=== PATIENT | female | born 1955 | race Caucasian/White ===

== ENCOUNTER 2020-02-07 08:34 | Outpatient (CLI) | payer BC, SELFPAY ==
--- NOTE | ~2020-02-07 | XR_ITS ---
EXAMINATION: XR abdomen/kub 1V INDICATION: Bilateral kidney stones TECHNIQUE: Supine views of the abdomen were obtained on 2 radiographs. COMPARISON: 01/02/2019 FINDINGS: No definite urinary tract calculi are identified. There are multiple phleboliths in the pel vis. Vascular calcifications are noted in association with the left kidney. Cholecystectomy clips are present. There is severe lumbar spondylosis. Multiple calcified granulomas are seen in the visualize d lung bases. There is mild bilateral hip osteoarthritis. The bowel gas pattern is normal. IMPRESSION: 1. No definite urinary tract calculi identified. Reviewed, dictated and finalized at location A.
== END 2020-02-07 08:35 | disposition home or self-care (01) ==
LOC: CHSLAB 08:36
PROVIDERS: PCP Internal Medicine; Visit Provider Urology
DX: N20.0 Calculus of kidney (principal)
CPT/HCPCS: 74018

== ENCOUNTER 2020-03-05 08:52 | Outpatient (CLI) | payer BC, SELFPAY ==
--- NOTE | ~2020-03-05 | MMUS_ITS ---
EXAMINATION: MM diagnostic josefina BI w jose, US breast BI limited HISTORY: Follow-up breast mass TECHNIQUE: Additional 3-D tomosynthesis images of the breasts were performed and synthetic 2-D images were generated. CAD analysis was submitted and interpreted. High resolution bilateral breast ultraso und was performed. COMPARISON: Comparison to multiple prior studies sequentially, with oldest reviewed study dated 11/06. BREAST PARENCHYMAL COMPOSITION: Breast composed of scattered areas of fibroglandular density. FINDINGS: MAMMOGRAPHIC FINDINGS: There are stable asymmetries in the right breast. No new masses, calcifications or architectural dist ortion to suggest malignancy. Masses in the upper outer quadrant of the left breast are unchanged. No suspicious calcifications. Right breast ultrasound: At 9:00, 4 cm from the nipple there is a 3 mm cyst. At 11:00, 2 cm from the nipple there are 2 hyperechoic masses with dense posterior shadowing measuring 8 and 7 mm respectivel y. No internal vascularity. These are unchanged from prior examination. Left breast ultrasound: At 1:00, 3 cm from the nipple, there is a 8 mm complicated cyst. At 1:00, 3 cm from the nipple, there is an oval circumscribed hypoechoic 5 mm mass without internal vascularity or posterior shadowing at 3:00, 3 cm from the nipple there is a 3 mm cyst. IMPRESSION: 1. Probable benign bilateral breast masses. 2. Recommend 6 month follow-up bilateral breast ultrasound BI-RADS category 3, probably benign findings. Reviewed, dictated and finalized at location A. IMPRESSION: 1. Probable benign bilateral breast masses. 2. Recommend 6 month follow-up bilateral breast ultrasound BI-RADS category 3, probably benign findings.
== END 2020-03-05 08:53 | disposition home or self-care (01) ==
PROVIDERS: PCP Internal Medicine; Visit Provider Internal Medicine
DX: R92.8 Other abnormal and inconclusive findings on diagnostic imaging of breast (principal)
CPT/HCPCS: 76642; 77062; 77066; G0279

== ENCOUNTER 2020-03-12 10:09 | Emergency (ER) | payer BC, SELFPAY ==
[2020-03-12] VITALS (7 sets, daily range): BP systolic 105–145; BP diastolic 57–100; PULSE 111–155; RESP 18–20; TEMP 36.7–36.8; O2SAT 95–98
--- NOTE | ~2020-03-12 | XR_ITS ---
EXAMINATION: XR chest 2V DATE: 03/12/2020 10:42 INDICATION: Tachycardia and cough TECHNIQUE: Frontal and lateral views of the chest are obtained COMPARISON: 06/18/2019 FINDINGS: The lungs are free of acute opacities. There is no pleural effusion or pneumothorax. The ca rdiomediastinal silhouette is normal. There is moderate thoracic spondylosis. There are innumerable c alcified pulmonary nodules scattered throughout the lungs, consistent with old granulomatous disease. IMPRESSION: 1. No acute cardiopulmonary abnormality. Reviewed, dictated and finalized at location B.
--- NOTE | 2020-03-12 10:15 | ECG_ITS ---
Measurements Intervals [place] Rate: 128 P: NM: 0 QRS: 0 QRSD: 83 T: 42 QT: 279 QTc: 407 Interpretive Statements ATRIAL FIBRILLATION WITH RAPID VENTRICULAR RESPONSE BASELINE ARTIFACT- II, III, AVR, AVL, AVF ABNORMAL ECG Electronically Signed On 03-12-2020 11:01:34 CDT by Hi Mao D.O.
[2020-03-12 10:34] LABS: Basophils Absolute Auto 0.07 K/mm3 (0.00-0.10); Basophils Percent Auto 0.8 % (0.0-1.0); Eosinophils Absolute Auto 0.12 K/mm3 (0.02-0.50); Eosinophils Percent Auto 1.3 % (1.0-6.0); Hemoglobin 15.7 g/dL (12.0-15.0); Immature Granulocyte Absolute 0.03 K/mm3 (0.00-0.00); Immature Granulocyte Percent A 0.3 % (0.0-0.0); Lymphocytes Absolute Auto 2.16 K/mm3 (1.10-4.50); Lymphocytes Percent Auto 23.8 % (18.0-42.0); Mean Corpuscular HGB Conc 32.7 g/dL (32.0-36.0); Mean Corpuscular Hemoglobin 28.4 pg (27.0-31.0); Mean Corpuscular Volume 86.8 fL (78.0-102.0); Mean Platelet Volume 10.7 fl (9.2-11.8); Monocytes Absolute Auto 0.61 K/mm3 (0.10-0.90); Monocytes Percent Auto 6.7 % (2.0-11.0); Neutrophils Absolute Auto 6.1 K/mm3 (1.7-7.2); Neutrophils Percent Auto 67.1 % (50.0-70.0); Platelet Count Result 282 K/mm3 (150-420); Red Blood Count 5.53 M/mm3 (4.20-5.40); Red Cell Distribution Width 14.2 % (11.6-14.4); White Blood Count 9.1 K/mm3 (4.8-10.8)
[2020-03-12 10:49] LABS: INR 1.1; Partial Thromboplastin Time 27.8 SEC (22.3-31.6); Prothrombin Time 10.9 Seconds (9.64-11.0)
[2020-03-12 10:53] LABS: Alanine Aminotransferase 32 U/L (14-59); Albumin Level 3.4 g/dL (3.4-5.0); Alkaline Phosphatase 76 U/L (46-116); Anion Gap 13.8 mmol/L (7-16); Aspartate Amino Transferase 19 U/L (15-37); BNP 70.6 pg/mL (0-100); Bilirubin,Total 0.4 mg/dL (0.00-1.00); Blood Urea Nitrogen 11 mg/dL (7-18); Calcium 9.8 mg/dL (8.5-10.1); Carbon Dioxide 26 mmol/L (21-32); Chloride 104 mmol/L (98-108); Estimated CRCL calculation 63 ml/min; Estimated Glomerular Filt Rate > 60; Glucose 123 mg/dL (70-99); Osmolality Calculated 290 mOsm/kg (285-295); Potassium 3.8 mmol/L (3.5-5.1); Sodium 140 mmol/L (136-145); Total Protein 7.2 g/dL (6.4-8.2)
[2020-03-12 10:54] LABS: Troponin I < 0.02 ng/mL (0.00-0.056)
--- NOTE | 2020-03-12 10:57 | PC.NURSE ---
Report given to QUIN Novak
--- NOTE | 2020-03-12 11:10 | PC.NURSE ---
[facility] [place] [facility] for consult.
--- NOTE | 2020-03-12 11:51 | PC.NURSE ---
Dr. Carter speaking with Dr. Butt with [facility]. Awaiting hospitalist to call, Dr. Butt would like pt transfered to see pt at [place].
--- NOTE | 2020-03-12 11:54 | ED.ARRPALP ---
HPI - Arrhythmia/Palpitations General Chief Complaint: Arrhythmia/Palpitations Stated Complaint: increased HR Time Seen by Provider: 03/12/20 11:54 Source: patient Mode of arrival: ambulatory Limitations: no limitations History of Present Illness HPI narrative: 64-year-old woman sent to the emergency department by her primary care doctor for a rapid heart rate found during a routine office visit. she denies having shortness of breath, chest pain, lightheadedness, sweating, nausea and she has no history of coronary artery disease. Her doctor also notes that she is hyperthyroid at present as Demonstrated by a very low TSH and an elevated T3 and T4 on labs drawn on 02/22/2020. She had ablation of AV node reentry SVT in 1999. complaint: heart racing Onset (ago): unknown Duration: constant Severity: mild Arrhythmia history: SVT Related Data Home Medications Medication Instructions Recorded Confirmed omega 6-hzr-wlp-fish oil [Fish Oil] 1 cap PO DAILY 06/18/19 03/12/20 budesonide-formoterol [Symbicort] 1 inh INHALATION DAILY 03/12/20 03/12/20 montelukast 10 mg PO DAILY 03/12/20 03/12/20 Allergies Allergy/AdvReac Type Severity Reaction Status Date / Time No Known Allergies Allergy Verified 06/18/19 09:39 Review of Systems Constitutional: Constitutional: Denies chills, Denies fatigue, Denies fever(s) and Denies weakness Eyes: Eyes: Denies change in vision and Denies photophobia ENT: Denies dysphagia, Denies nasal congestion and Denies sore throat Cardiovascular: Cardiovascular: Denies radiating jaw, neck or arm pain Respiratory: Respiratory: Denies cough, Denies dyspnea and Denies wheezing Gastrointestinal: Gastrointestinal: Denies abdominal pain, Denies nausea and Denies vomiting Genitourinary: Genitourinary: Denies nocturia and Denies dysuria Musculoskeletal: Musculoskeletal: Denies back pain, Denies arthralgias and Denies joint swelling Integumentary/Breasts: Skin/Breast: Denies pruritus, Denies erythema and Denies rash Neurologic: Denies vertigo, Denies dizziness and Denies syncope Endocrine: Endocrine: Denies polydipsia and Denies polyuria Hematologic/Lymphatic: Hematologic/Lymphatic: Denies easy bleeding and Denies easy bruising Allergic/Immunologic: Allergic/Immunologic: Denies lip swelling and Denies wheezing PMFSH Past Medical History Medical History Arthritis SVT (supraventricular tachycardia) Surgical History Surgical History H/O prior ablation treatment History of section x 2 History of tubal ligation Social History Social History Smoking status: Current every day smoker Tobacco type: cigarettes Second hand tobacco smoke exposure: Yes Smoking end date: 08/16/09 Alcohol intake: former Substance use: never Gender identity (if verbalized by the patient): Female Exam Const: General: healthy appearing and no acute distress Limitations: no limitations HENMT: Mouth: Yes moist mucous membranes Throat: posterior oropharynx normal Eyes: Conjunctivae: conjunctivae normal Pupils: Equal, round and reactive pupils present EOM: EOMs intact bilaterally Resp: Effort & Inspection: normal respiratory effort and not labored Auscultation: clear to auscultation bilaterally, no rales, no rhonchi and no wheezes Cardio: Rate: regular rate Rhythm: regular rhythm Heart sounds: no murmurs GI: Inspection: non-distended Auscultation: normal bowel sounds Other: nontender. Skin: General skin exam: normal color, no jaundice and no pallor Rashes: no rashes Neuro: General: patient oriented x3, moves all extremities, no focal motor deficits and CN's II-XI intact bilaterally Speech: normal speech Gait exam (Neuro): Normal gait present Extrem: General: normal to inspection and no clubbing, cyanosis
[2020-03-12] MEDS: METOPROLOL SUCCINATE EXT REL 50 MG TABCR PO (12:02)
[2020-03-12 12:09] LABS: Appearance Urine Clear (Clear); Bilirubin Urine Negative (Negative); Color Urine Yellow (Yellow); Glucose Urine UA Negative (Negative); Ketones Urine Negative (Negative); Leukocyte Esterase Ur Negative LEU/UL (Negative); Nitrate Urine Negative (Negative); Protein Urine Negative (Negative); Urobilinogen Urine 0.2 mg/dL (0.2-1.0); pH Urine 7.5 (5.0-8.0)
[2020-03-12 12:12] LABS: Add Urine Microscopic? YES; Blood Urine Trace-Intact (Negative)
[2020-03-12 12:13] LABS: RBC Urine 0-2 /hpf (0-2)
[2020-03-12 12:14] LABS: Bacteria Urine Trace /hpf; Squamous Epithelial Cell Urine Rare /hpf (Few); WBC Urine 0-3 /hpf (0-3)
[2020-03-12 12:16] LABS: Amphetamine Screen Urine Negative (Negative); Barbiturate Screen Urine Negative (Negative); Benzodiazepines Screen Urine Negative (Negative); Cannabinoid Screen Urine Negative (Negative); Cocaine Screen Urine Negative (Negative); Methadone Screen Urine Negative (Negative); Opiate Screen Urine Negative (Negative); Phencyclidine Screen Urine Negative (Negative)
--- NOTE | 2020-03-12 12:28 | PC.NURSE ---
Dr. Carter speaking with hospitalist at [facility]
[2020-03-12] MEDS: APIXABAN 2.5 MG TABLET 5 MG PO (12:40)
--- NOTE | 2020-03-12 13:27 | PC.NURSE ---
Report to [facility] and ARIANNA caldwell for transfer.
--- NOTE | 2020-03-12 13:39 | PC.NURSE ---
[facility] unavailable for transfer, [facility] contacted.
[2020-03-12 14:06] LABS: Troponin I < 0.02 ng/mL (0.00-0.056)
== END 2020-03-12 13:55 | disposition short-term general hospital (02) ==
PROVIDERS: Emergency Provider Emergency Medicine; PCP Internal Medicine
DX: I48.20 Chronic atrial fibrillation, unspecified (principal); F17.200 Nicotine dependence, unspecified, uncomplicated
CPT/HCPCS: 36415; 71046; 80053; 80307; 81001; 83519; 83880; 84484; 85025; 85610; 85730; 93005; 99285; A9270

== ENCOUNTER 2020-09-17 09:23 | Outpatient (CLI) | payer MEDICARE, BC, SELFPAY ==
--- NOTE | ~2020-09-17 | US_ITS ---
EXAMINATION: US breast BI complete HISTORY: Probably benign bilateral breast masses TECHNIQUE: Complete bilateral breast ultrasound is performed including all four quadrants and the sub areolar aspects of both breasts. COMPARISON: 03/05/2020, 07/04/2019, 12/29/2018 FINDINGS: The previously described left breast masses now have an appearance consistent with simple c ysts. Multiple cysts are also noted in the right breast. There is a 6 mm hypoechoic mass with indisti nct margins and posterior shadowing at the 11:00 location 3 cm from the nipple which appears stable t o slightly decreased in size. A second mass previously described at this location is no longer identi fied. IMPRESSION: 1. Stable to slightly decreased, probably benign right breast mass. Recommend ultrasound follow-up in six months to demonstrate two years of stability. 2. Additional bilateral breast cysts. BI-RADS category 3, probably benign findings. Reviewed, dictated and finalized at location A. LOPER [employer]OVER MECHANICAL IMPRESSION: 1. Stable to slightly decreased, probably benign right breast mass. Recommend u ltrasound follow-up in six months to demonstrate two years of stability. 2. Additional bilateral breast cysts. BI-RADS category 3, probably benign findings.
--- NOTE | ~2020-09-17 | DEXA_ITS ---
Bone Density Report Name: Marcella Fox Age: 65 Sex: Female Ethnicity: White Date of : 1955 Indication: postmenopausal; screening for osteoporosis; height loss; asthma or emphysema; Referring Provider: Yuan Leahy Study: Bone densitometry was performed. Exam Date: September 17, 2020 Accession number: [id number] Bone Density: Region BMD T-score Z-score Classification AP Spine(L1, L2, L3) 1.274 2.3 4.1 Normal Femoral Neck (Left) 0.764 -0.8 0.8 Normal Total Hip (Left) 0.899 -0.4 0.9 Normal Femoral Neck (Right) 0.771 -0.7 0.8 Normal Total Hip (Right) 0.926 -0.1 1.1 Normal Femoral Neck Mean 0.768 -0.7 0.8 Normal Total Hip Mean 0.912 -0.2 1.0 Normal World Health Organization criteria for BMD impression classify patients as: Normal (T-score at or above -1.0), Osteopenia (T-score between -1.0 and -2.5), or Osteoporosis (T-score at or below -2.5). 10-year Fracture Risk: FRAX not reported because: All T-scores for Spine Total, Hip Total, Femoral Neck at or above -1.0 Previous Exams: Region Exam Age BMD T-score BMD Change BMD Change Date g/cm2 vs Baseline vs Previous AP Spine (L1-L3) 09/17/2020 65 1.274 2.3 0.023 (1.8%)# -0.134 (-9.5%) 01/26/2018 62 1.408 3.5 0.156 (12.5%)* 0.037 (2.7%)* 10/24/2014 59 1.371 3.2 0.120 (9.6%)*! 0.082 (6.4%)* 10/03/2012 57 1.289 2.5 0.037 (3.0%)*! 0.078 (6.5%)* 09/27/2009 54 1.211 1.8 -0.041 (-3.3%) -0.041 (-3.3%) 07/01/2007 51 1.252 2.1 Total Hip(Left) 09/17/2020 65 0.899 -0.4 -0.278 (-23.6% -0.126 (-12.3% 01/26/2018 62 1.025 0.7 -0.152 (-12.9% 0.010 (1.0%) 10/24/2014 59 1.014 0.6 -0.162 (-13.8% -0.034 (-3.3%) 10/03/2012 57 1.048 0.9 -0.128 (-10.9% -0.071 (-6.3%) 09/27/2009 54 1.119 1.5 -0.057 (-4.8%) -0.057 (-4.8%) 07/01/2007 51 1.176 1.9 Total Hip(Right) 09/17/2020 65 0.926 -0.1 -0.266 (-22.3% -0.121 (-11.5% 10/24/2014 59 1.047 0.9 -0.145 (-12.2% 0.013 (1.2%) 10/03/2012 57 1.034 0.8 -0.158 (-13.2% -0.060 (-5.5%) 09/27/2009 54 1.094 1.2 -0.098 (-8.2%) -0.098 (-8.2%) 07/01/2007 51 1.192 2.0 *Denotes significance at 95% confidence level, LSC for AP Spine = 0.022 g/cm2, LSC for Total Hip = 0.027 g/cm2 # Denotes dissimilar scan types or analysis methods Clinical Information Provided by Patient: Smokes Has used the following medications: Vitamin D, Calcium Has the following medical conditions: Asthma or Emphysema
== END 2020-09-17 09:24 | disposition home or self-care (01) ==
LOC: CHSIMG 09:27
PROVIDERS: PCP Internal Medicine; Visit Provider Obstetrics & Gynecology
DX: R92.8 Other abnormal and inconclusive findings on diagnostic imaging of breast (principal); Z78.0 Asymptomatic menopausal state
CPT/HCPCS: 76641; 77080

== ENCOUNTER 2021-05-21 07:13 | Outpatient (CLI) | payer MEDICARE, BC, SELFPAY ==
--- NOTE | ~2021-05-21 | US_ITS ---
EXAMINATION: US carotid duplex BI DATE: 05/21/2021 08:10 INDICATION: Carotid stenosis TECHNIQUE: Grayscale, color Doppler, and pulsed Doppler images of the cervical carotid arteries were obtained. The degree of vessel stenosis is placed in one of the following categories: normal, <50%, 5 0-69%, >=70% but less than near-occlusion, near-occlusion, or total occlusion. Note that percent sten osis relative to normal distal artery lumen diameter is indirectly measured from velocity measurement s as described by Nelson, et al. Radiology 2003; 229:340-346. COMPARISON: None. FINDINGS: RIGHT: The right common carotid artery (CCA) peak systolic velocity (PSV) is 89 cm/s. The right internal car otid artery (ICA) PSV is 77 cm/s. The right ICA end-diastolic velocity (EDV) is 18 cm/s. The right IC A/CCA PSV ratio is 0.9. Grayscale and color Doppler images yield an estimate of <50% diameter reducti on from plaque in the ICA. The external carotid artery (ECA) PSV is 89 cm/s. There is antegrade flow in the right vertebral artery. LEFT: The left CCA PSV is 67 cm/s. The left ICA PSV is 100 cm/s. The left ICA EDV is 26 cm/s. The left ICA/ CCA PSV ratio is 1.3. Grayscale and color Doppler images yield an estimate of <50% diameter reduction from plaque in the ICA. The ECA PSV is 118 cm/s. There is antegrade flow in the left vertebral arter y. IMPRESSION: 1. <50% stenosis in the right internal carotid artery. 2. <50% stenosis in the left internal carotid artery. Reviewed, dictated and finalized at location B.
--- NOTE | ~2021-05-21 | US_ITS ---
EXAMINATION: US aorta [facility] DATE: 05/21/2021 08:10 INDICATION: Abdominal aortic aneurysm screening TECHNIQUE: Grayscale, color Doppler, and pulsed Doppler images of the aorta and common iliac arteries were obtained. COMPARISON: None. FINDINGS: The proximal aorta measures 2.7 cm. The mid aorta measures 2.3 cm. The distal aorta measures 1.9 cm. The right common iliac artery measures 9 mm. The left common iliac artery measures 9 mm. IMPRESSION: 1. Normal caliber abdominal aorta. Reviewed, dictated and finalized at location B.
--- NOTE | ~2021-05-21 | US_ITS ---
EXAMINATION: US arterial ankle brachial ind DATE: 05/21/2021 08:10 INDICATION: Peripheral arterial occlusive disease TECHNIQUE: Segmental pressures and plethysmographic and Doppler waveforms of the brachial and lower e xtremity arteries were obtained. COMPARISON: None. FINDINGS: Right and left brachial artery pressures of 136 mm Hg and 139 mm Hg, respectively, are concordant (no rmal difference <= 30 mmHg). The right ankle-brachial index (LINDSAY) is 0.91 (normal >= 0.9-1.0). The right great toe-brachial index (TBI) is 0.67 (normal >= 0.65). Arterial Doppler waveforms are triphasic with brisk systolic upstroke s at both the right posterior tibial and dorsalis pedis arteries. The left LINDSAY is 0.92. The left TBI is 0.65. Arterial Doppler waveforms are triphasic with brisk systo lic upstrokes at both the left posterior tibial and dorsalis pedis arteries. IMPRESSION: 1. No significant arterial occlusive disease with normal bilateral ABIs and TBIs. Reviewed, dictated and finalized at location B. IMPRESSION: 1. No significant arterial occlusive disease with normal bilateral ABIs and TBI s.
--- NOTE | ~2021-05-21 | CT_ITS ---
EXAMINATION: CT lung screening DATE: 05/21/2021 07:45 INDICATION: Personal hx of tobacco dependence SMOKER SCREENING TECHNIQUE: Computed tomography (CT) of the chest was performed without intravenous contrast. Addition al 3D reconstructions utilizing coronal maximum intensity projection (MIP) were performed. Automated exposure control and iterative reconstruction technique were employed. The dose-length product was 85 .16 mGy-cm. COMPARISON: CT dated 08/29/2019 FINDINGS: Mild emphysema. Again seen are numerous scattered bilateral calcified pulmonary nodules consistent wi th old granulomatous disease. There are also significantly fewer scattered <4 mm noncalcified pulmona ry nodules. Diffuse mild bronchial wall thickening. Again seen is some mild lower attenuation likely mucous plugging within a few of the bronchi in the basilar segments of the right lower lobe. No highe r attenuation or enlarging endobronchial nodules identified. No pulmonary edema, pleural effusion or pneumothorax. Heart size is normal. Atherosclerotic coronary artery calcific location. No pericardial effusion. No pathologically enlarged lymphadenopathy. Cholecystectomy clips at the gallbladder fossa . Mild thoracic dextroscoliosis with moderate to severe spondylosis. IMPRESSION: 1. . Lung-RADS category 2: Benign appearance or behavior. Continue annual screening with noncontrast low-dose chest CT in 12 months. Reviewed, dictated and finalized at location B. IMPRESSION: 1. . Lung-RADS category 2: Benign appearance or behavior. Continue annual scree scott with noncontrast low-dose chest CT in 12 months.
== END 2021-05-21 07:14 | disposition home or self-care (01) ==
PROVIDERS: PCP Internal Medicine; Visit Provider Internal Medicine
DX: Z12.2 Encounter for screening for malignant neoplasm of respiratory organs (principal); Z87.891 Personal history of nicotine dependence; I73.9 Peripheral vascular disease, unspecified; I65.29 Occlusion and stenosis of unspecified carotid artery
CPT/HCPCS: 71271; 76706; 93880; 93922

== ENCOUNTER 2021-05-22 10:22 | Outpatient (CLI) | payer MEDICARE, BC, SELFPAY | END 2021-05-22 10:23 | disposition home or self-care (01) | LOC: CHSIMG 10:23 | PROVIDERS: PCP Internal Medicine | DX: I45.10 Unspecified right bundle-branch block (principal); I48.0 Paroxysmal atrial fibrillation; Z79.01 Long term (current) use of anticoagulants | CPT/HCPCS: 93306 ==

== ENCOUNTER 2021-08-26 08:44 | Outpatient (CLI) | payer MEDICARE, BC, SELFPAY ==
--- NOTE | ~2021-08-26 | MM_ITS ---
EXAMINATION: [facility] HISTORY: Screening TECHNIQUE: Craniocaudal and mediolateral oblique 3-D tomosynthesis images were obtained and synthetic 2-D images were generated. CAD analysis was submitted and interpreted. COMPARISON: Comparison to multiple prior studies sequentially, with oldest reviewed study dated 06/16. BREAST PARENCHYMAL COMPOSITION: Breast composed of scattered areas of fibroglandular density FINDINGS: There are bilateral breast masses which are stable compared with prior examination. No susp icious calcifications or architectural distortion. IMPRESSION: 1. Stable bilateral breast masses. 2. Follow-up bilateral breast ultrasound recommended as discussed on study dated 09/17/2020. BI-RADS Category 0: Incomplete: Needs additional imaging evaluation. Reviewed, dictated and finalized at location A. AGE AGENT IMPRESSION: 1. Stable bilateral breast masses. 2. Follow-up bilateral breast ultrasound recommended as discussed on study date d 09/17/2020. BI-RADS Category 0: Incomplete: Needs additional imaging evaluation.
== END 2021-08-26 08:45 | disposition home or self-care (01) ==
LOC: CHSIMG 08:45
PROVIDERS: PCP Internal Medicine; Visit Provider Obstetrics & Gynecology
DX: Z12.31 Encounter for screening mammogram for malignant neoplasm of breast (principal)
CPT/HCPCS: 77063; 77067

== ENCOUNTER 2021-09-01 10:44 | Outpatient (CLI) | payer MEDICARE, BC, SELFPAY ==
--- NOTE | ~2021-09-01 | US_ITS ---
US breast BI complete 09/01/2021 11:26 Indication: Follow-up bilateral breast masses Procedure: High-resolution bilateral complete ultrasound of the breast including all 4 quadrants in t he subareolar locations Comparison: Comparison to multiple prior studies sequentially, with oldest reviewed study dated 03/05. Findings: There are multiple cysts in both breasts. In the right breast at 11:00, 3 cm from the nippl e there are 2 separate predominantly hypoechoic masses measuring up to 6 mm and 8 mm respectively, un changed dating back to 03/05/2020 examination. In the left breast at 1:00, 3 cm from the nipple there is an oval hypoechoic mass with enhanced through transmission measuring 8 x 8 x 6 mm, unchanged from prior studies allowing for technique. No new suspicious masses to suggest malignancy. Impression: 1: Stable bilateral breast masses, likely benign. BI-RADS CATEGORY 3-PROBABLY BENIGN FINDING RECOMMENDATION: 12 month follow-up bilateral breast ultrasound and screening mammogram recommended. Reviewed, dictated and finalized at location B. MUFF ASSEMBLER Impression: 1: Stable bilateral breast masses, likely benign. BI-RADS CATEGORY 3-PROBABLY BENIGN FINDING RECOMMENDATION: 12 month follow-up bilateral breast ultrasound and screening ma mmogram recommended.
== END 2021-09-01 10:45 | disposition home or self-care (01) ==
LOC: CHSIMG 10:45
PROVIDERS: PCP Internal Medicine; Visit Provider Obstetrics & Gynecology
DX: R92.8 Other abnormal and inconclusive findings on diagnostic imaging of breast (principal)
CPT/HCPCS: 76641

== ENCOUNTER 2022-08-31 07:22 | Outpatient (CLI) | payer MEDICARE, BC, SELFPAY ==
--- NOTE | ~2022-08-31 | CT_ITS ---
EXAMINATION: CT lung screening DATE: 08/31/2022 07:45 INDICATION: No history of tobacco dependence TECHNIQUE: Computed tomography (CT) of the chest was performed without intravenous contrast. The dose -length product was 104.19 mGy-cm. Automated exposure control and iterative reconstruction technique were employed. COMPARISON: CT dated 05/21/2021 and 08/29/2019 FINDINGS: There are in numerable scattered calcified granulomas of the lungs. No thoracic lymphadenop athy. There is atherosclerosis. Status post cholecystectomy. No endobronchial lesions. There are stab le noncalcified pulmonary nodules bilaterally measuring 3 mm or less there is right middle lobe atele ctasis. Moderate thoracic spondylosis. No focal lytic or blastic lesions. No pneumothorax. IMPRESSION: 1. Lung-RADS category 2: Benign appearance or behavior. Continue annual screening with noncontrast lo w-dose chest CT in 12 months. Reviewed, dictated and finalized at location A. AD TRIMMER IMPRESSION: 1. Lung-RADS category 2: Benign appearance or behavior. Continue annual screeni ng with noncontrast low-dose chest CT in 12 months.
== END 2022-08-31 07:23 | disposition home or self-care (01) ==
LOC: CHSIMG 07:23
PROVIDERS: PCP Internal Medicine; Visit Provider Internal Medicine
DX: Z12.2 Encounter for screening for malignant neoplasm of respiratory organs (principal); Z87.891 Personal history of nicotine dependence
CPT/HCPCS: 71271

== ENCOUNTER 2023-01-25 12:27 | Outpatient (CLI) | payer MEDICARE, BC, SELFPAY ==
--- NOTE | ~2023-01-25 | MM_ITS ---
EXAMINATION: MM screening [facility] BI w jose HISTORY: Screening mammogram TECHNIQUE: Craniocaudal and mediolateral oblique 3-D tomosynthesis images were obtained and synthetic 2-D images were generated. CAD analysis was submitted and interpreted. COMPARISON: Serial mammogram examinations dating back to 12/19/2018 bilateral screening mammogram BREAST PARENCHYMAL COMPOSITION: There are scattered areas of fibroglandular density. FINDINGS: Stable or diminished nodular opacities of the breasts since 12/19/2018, the largest situated in the upper outer quadrant of the right breast, measuring approximately 8 mm. There is no evidence o f suspicious mass, calcification, or architectural distortion to suggest malignancy in either breast. There has been no suspicious interval change. IMPRESSION: 1. No mammographic evidence of malignancy. 2. Recommend routine screening mammography in one year. BI-RADS Category 2: Benign finding(s). Reviewed, dictated and finalized at location A.
== END 2023-01-25 12:28 | disposition home or self-care (01) ==
LOC: CHSIMG 12:29
PROVIDERS: PCP Obstetrics & Gynecology; Visit Provider Obstetrics & Gynecology
DX: Z12.31 Encounter for screening mammogram for malignant neoplasm of breast (principal)
CPT/HCPCS: 77063; 77067

== ENCOUNTER 2023-11-16 07:15 | Outpatient (CLI) | payer MEDICARE, BC, SELFPAY ==
--- NOTE | ~2023-11-16 | DEXA_ITS ---
? Bone Density Report? Name:? mabel watson Patient ID:??? [id number] Age:? 68 Sex:? Female Ethnicity:? White Date of : 1955 Indication: postmenopausal; screening for osteoporosis; height loss; Referring Provider: Kennedy Perry Study: Bone densitometry was performed. Exam Date: November 16, 2023 Accession number: [id number] Bone Density: Region? BMD??? T-score? Z-score?? Classification AP Spine(L1, L2, L3)? 1.273??? 2.3?4.3? Normal Femoral Neck (Left)? 0.679?? -1.5? 0.2? Osteopenia Total Hip (Left)? 0.908?? -0.3? 1.1? Normal Femoral Neck (Right)? 0.710?? -1.3? 0.4? Osteopenia Total Hip (Right)? 0.885?? -0.5? 0.9? Normal Femoral Neck Mean? 0.694?? -1.4? 0.3? Osteopenia Total Hip Mean? 0.897?? -0.4? 1.0? Normal World Health Organization criteria for BMD impression classify patients as: Normal (T-score at or above -1.0), Osteopenia (T-score between -1.0 and -2.5), or Osteoporosis (T-score at or below -2.5). 10-year Fracture Risk(1): Major Osteoporotic Fracture? 9.6% Hip Fracture? 2.0% Reported Risk Factors: [place] (), Neck BMD=0.679, BMI=30.2, smoking (1) FRAX? Version 3.08. Fracture probability calculated for an untreated patient. Fracture probability may be lower if the patient has received treatment. Clinical Information Provided by Patient: Smokes Has used the following medications: Vitamin D, Calcium, multi Patient maximum height was 64 Menopause Age: 50 Drinks caffeinated beverages Onset of menses at age 12 Number of children 2 Impression: The patient has low bone mass, based on the Left Femoral Neck T- score. The patient has risk factors, including: smoking. Discussion: BONE DENSITY IS LOW AT ONE OR MORE SKELETAL SITES. This patient's lowest T-score is low at one or more skeletal sites.? It meets the World Health Organization's (WHO) criteria for ?low bone mass?? (T-score between -1.0 and -2.5).? The patient's 10-year risk of fracture as calculated by FRAX is less than the threshold where pharmacological therapy is recommended by the National Osteoporosis Foundation (NOF).? However, all treatment decisions require clinical judgment and consideration of individual patient factors, including patient preferences, comorbidities, previous drug use, risk factors not captured in the FRAX model (e.g., frailty, falls, vitamin D deficiency, increased bone turnover, interval significant decline in bone density) and possible under or overestimation of fracture risk by FRAX. The patient should follow a healthful lifestyle (good nutrition with adequate calcium and vitamin D, and appropriate weight-bearing exercise). Follow-Up: Consider repeating this study in 2 to 3 years to reassess this patient's status, or sooner if there is some new clinical indication. Reported by: Dr. Gio Robert on :56:00 AM. BRI
--- NOTE | ~2023-11-16 | CT_ITS ---
EXAMINATION:CT lung screening DATE: 11/16/2023 08:00 INDICATION: Personal history of nicotine dependence. Current smoker with 50 pack year history. TECHNIQUE: Computed tomography (CT) of the chest was performed without intravenous contrast. Automate d exposure control and iterative reconstruction technique were employed. The dose-length product (DLP ) was 143.70 mGy-cm. COMPARISON: Chest CT 08/31/2022 FINDINGS: There is mild emphysema. Calcified pulmonary nodules and calcified hilar and mediastinal ly mph nodes are consistent with old granulomatous disease. There are a few noncalcified nodules measuri ng up to 2 mm. There is mild atelectasis bilaterally. No pleural effusion. The heart size is normal. There are coronary artery calcifications. No pericardial effusion. There are changes of cholecystecto my. There is severe cervical, thoracic, and lumbar spondylosis. IMPRESSION: 1. Lung-RADS category 2: Benign appearance or behavior. Continue annual screening with noncontrast lo w-dose chest CT in 12 months. Reviewed, dictated and finalized at location A. IMPRESSION: 1. Lung-RADS category 2: Benign appearance or behavior. Continue annual screeni ng with noncontrast low-dose chest CT in 12 months.
== END 2023-11-16 07:16 | disposition home or self-care (01) ==
LOC: CHSIMG 07:17
PROVIDERS: PCP Internal Medicine; Visit Provider Internal Medicine
DX: Z12.2 Encounter for screening for malignant neoplasm of respiratory organs (principal); Z87.891 Personal history of nicotine dependence; Z78.0 Asymptomatic menopausal state; M85.89 Other specified disorders of bone density and structure, multiple sites
CPT/HCPCS: 71271; 77080

== ENCOUNTER 2023-12-02 16:18 | Outpatient (CLI) | payer MEDICARE, BC, SELFPAY ==
--- NOTE | ~2023-12-02 | XR_ITS ---
EXAMINATION: XR_KNEE1-2VLT_CR DATE: 12/02/2023 16:47 INDICATION: Left knee pain. TECHNIQUE: 4 views of left knee were obtained. COMPARISON: None. FINDINGS: Bone alignment is normal. No fracture. There is severe osteoarthritis of medial compartment , moderate osteoarthritis of patellofemoral compartment, and mild osteoarthritis of lateral compartme nt. No knee joint effusion. IMPRESSION: 1. Severe left knee osteoarthritis. Reviewed, dictated and finalized at location E.
--- NOTE | ~2023-12-02 | XR_ITS ---
EXAMINATION: XR_[id number]_CR DATE: 12/02/2023 16:47 INDICATION: Right knee pain. TECHNIQUE: 4 views of right knee were obtained. COMPARISON: None. FINDINGS: Bone alignment is normal. No fracture. There is moderate osteoarthritis of medial compartme nt and mild osteoarthritis of lateral and patellofemoral compartments. No knee joint effusion. IMPRESSION: 1. Moderate right knee osteoarthritis. Reviewed, dictated and finalized at location E.
== END 2023-12-02 16:19 | disposition home or self-care (01) ==
LOC: CHSIMG 16:21
PROVIDERS: PCP Internal Medicine; Visit Provider Internal Medicine
DX: M25.561 Pain in right knee (principal); M17.0 Bilateral primary osteoarthritis of knee
CPT/HCPCS: 73560

== ENCOUNTER 2024-02-07 07:26 | Outpatient (CLI) | payer MEDICARE, BC, SELFPAY ==
--- NOTE | ~2024-02-07 | MM_ITS ---
EXAMINATION: MM screening josefina BI w jose HISTORY: Screening mammogram, family history of breast cancer in her sister. TECHNIQUE: Craniocaudal and mediolateral oblique 3-D tomosynthesis images were obtained and synthetic 2-D images were generated. CAD analysis was submitted and interpreted. COMPARISON: 01/25/2023, 08/26/2021, 03/05/2020 BREAST PARENCHYMAL COMPOSITION:Not Dense. The breasts are almost entirely fatty FINDINGS: There are multiple small bilateral circumscribed low-density breast masses, as compatible w ith bilateral cysts and/or fibroadenomas. No suspicious mass, calcification, or architectural distort ion are identified in either breast to suggest malignancy. There has been no suspicious interval finney ge. IMPRESSION: No mammographic evidence of malignancy. Multiple small bilateral circumscribed breast masses are most consistent with bilateral cysts and/or fibroadenomas, compatible with benign imaging pattern. Recommend routine screening mammography in one year. BI-RADS Category 2: Benign finding(s). Reviewed, dictated and finalized at location M. IMPRESSION: No mammographic evidence of malignancy. Multiple small bilateral circumscribed breast masses are most consistent with b ilateral cysts and/or fibroadenomas, compatible with benign imaging pattern. Recommend routine screening mammography in one year. BI-RADS Category 2: Benign finding(s).
== END 2024-02-07 07:27 | disposition home or self-care (01) ==
LOC: CHSIMG 07:27
PROVIDERS: PCP Internal Medicine; Visit Provider Internal Medicine
DX: Z12.31 Encounter for screening mammogram for malignant neoplasm of breast (principal)
CPT/HCPCS: 77063; 77067

== ENCOUNTER 2024-09-20 12:38 | Outpatient (CLI) | payer MEDICARE, BC, SELFPAY ==
--- NOTE | ~2024-09-20 | US_ITS ---
EXAMINATION: US arterial ankle brachial ind DATE: 09/20/2024 13:06 INDICATION: Peripheral arterial occlusive disease TECHNIQUE: Segmental pressures and plethysmographic and Doppler waveforms of the brachial and lower e xtremity arteries were obtained. COMPARISON: 05/21/2021 FINDINGS: Right and left brachial artery pressures of 125 mm Hg and 135 mm Hg, respectively, are concordant (no rmal difference <= 30 mmHg). The right ankle-brachial index (LINDSAY) is 1.13 (normal >= 0.9-1.0). The right great toe-brachial index (TBI) is 0.87 (normal >= 0.65). Arterial Doppler waveforms are biphasic with brisk systolic upstrokes at both right posterior tibial and dorsalis pedis arteries. The left LINDSAY is 1.16. The left TBI is 0.76. Arterial Doppler waveforms are biphasic with brisk systol ic upstrokes at both left posterior tibial and dorsalis pedis arteries. IMPRESSION: 1. No significant arterial occlusive disease with normal bilateral ABIs and TBI's Reviewed, dictated and finalized at location A. ER EXPLOSION IMPRESSION: 1. No significant arterial occlusive disease with normal bilateral ABIs and TBI 's
--- OUTSIDE RECORDS SUMMARY | 2024-09-20 13:38 | XMS_ITS ---
Care Plan - [facility] Created on: September 20, 2024 TORRIE AGUIRRE : 1955 Sex: Female Author Organization [facility] Address [address] [place] [address] Phone Care Team Providers Care Director Of Casework Department Name Role Phone Unavailable Unavailable Unavailable
--- OUTSIDE RECORDS SUMMARY | 2024-09-20 13:38 | XMS_ITS | Clinical Summary ---
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 Plan of Treatment No Plan of Treatment Recorded Assessments Includes: Assessments from this encounter No Assessments Recorded Medical Equipment - Implanted Devices Includes: Current Devices No Medical Equipment Recorded Medications Includes: Medications discussed during this encounter and other current Medications Current Medications (continue as prescribed) Calcium 500 MG OR CHEW 09/23/2010 Provider: Diagnosis: Last Documented On 1 9:27AM By SUE VIRGEN MA ; [facility] Fish Oil 1000 MG OR CAPS 09/23/2010 Provider: Diagnosis: Last Documented On 1 9:28AM By SUE VIRGEN MA ; [facility] B Complex-Vitamin B12 OR TABS 09/23/2010 Provider: Diagnosis: Last Documented On 1 9:28AM By SUE VIRGEN MA ; [facility] Medications Administered Includes: Administered Medications from this encounter No Administered Medications Recorded Results Includes: Results discussed during this encounter No Results Recorded For Specified Dates History of Present Illness Includes: History of Present Illness from this encounter No History of Present Illness Recorded Social History No Social History Recorded - Smoking Status Unknown Medical History Includes: Medical History addressed during this encounter No Medical History Recorded Family History Includes: Family History addressed during this encounter No Family History Recorded Review of Systems Includes: Review of Systems from this encounter No Review of Systems Recorded Mental Status Includes: Mental Status from this encounter No Mental Status Recorded Functional Status Includes: Functional Status from this encounter No Functional Status Recorded Physical Exam Includes: Physical Exam from this encounter No Physical Exam Recorded Allergies Includes: Active Allergies No Known Allergies Encounters Encounter Provider Location Date Check-In Time Check-Out Time Diagnosis 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 [facility] BUSINESS PERFORMANCE ADVISOR 09/12/2009 8:20AM 11:55AM Clinical Notes Includes: Clinical Notes from this encounter No Clinical Notes Recorded
--- OUTSIDE RECORDS SUMMARY | 2024-09-20 13:38 | XMS_ITS | Encounter Summary ---
Author Organization [facility] Address [facility] [place] [address] Care Team Providers Care Door Liner Helper Name Role Phone Kennedy Perry MD Primary Care Provider [phone] Van Butt MD Unavailable Unavailable Jett Borja PA-C Unavailable [phone] Roya Fisher MD Unavailable [phone] Encounter Details Date Type Department Care Team (Late st Contact Info) Description 05/19/2021 Abstract [facility] [address] [place] [address] Van Butt MD Social History Tobacco Use Types Packs/Day Years Used Date Smoking Tobacco: Every Day Cigarettes Smokeless Tobacco: Never Comments:trying to quit Alcohol Use Standard Drinks/Week Comments Never 0 (1 standard drink = 0.6 oz pur e alcohol) AUDIT-C Answer Date Recorded Frequency of Alcohol Consumption Never 09/26/2019 Average Number of Drinks Not on file 020 Frequency of Binge Drinking Not on file 09/16 Comments No Sex and Gender Information Value Date Recorded Sex Assigned at Not on file Legal Sex Female 11:02 PM CDT Gender Identity Female 03/12/2020 5:18 PM CDT Sexual Orientation Straight 03/12/2020 5: 18 PM CDT COVID-19 Exposure Response Date Recorded In the last month, have you been in contact with someone who was confirmed or suspected to have Coronavirus / COVID-19? No / Unsure 05/19/2021 10:03 AM CDT documented as of this encounter Functional Status * RETIRED Are you deaf or do you have serious difficulty hearing Answer Date of Assessment Author Status No 03/12/2020 5:20 PM CDT Activ e * RETIRED Are you blind or do you have serious difficulty seeing, even when wearing glasses? Answer Date of Assessment Author Status No 03/12/2020 5:20 PM CDT Activ e * Do you have serious difficulty walking or climbing stairs? Answer Date of Assessment Author Status No 03/12/2020 5:20 PM CDT Eva Villafuerte RN Active * Do you have difficulty dressing or bathing? Answer Date of Assessment Author Status No 03/12/2020 5:20 PM CDT Eva Villafuerte RN Active * Because of a physical, mental, or emotional condition, do you have difficulty doing errands alone such as visiting a doctor's office or shopping? Answer Date of Assessment Author Status No 03/12/2020 5:20 PM Eva Mejia RN Active documented as of this encounter Mental Status * Because of a physical, mental, or emotional condition, do you have serious difficulty concentrating, remembering, or making decisions? Answer Entry Date Author Status No 03/12/2020 5:20 PM CDEva Larson RN Active documented in this encounter Plan of Treatment Not on file documented as of this encounter Procedures Procedure Name Priority Date/Time Associated Diagnosis Comments CMP (ABSTRACTED LAB) Routine 04/29/2021 T3 FREE (OUTSIDE LAB) Routine 04/29/2021 TSH (OUTSIDE LAB) Routine 04/29/2021 LIPID PANEL Routine 04/29/2021 CBC, MANUAL DIFF Routine 04/29/2021 THYROXINE, FREE (FT4) Routine 04/29/2021 documented in this encounter Results * CBC, MANUAL DIFF (04/29/2021) WBC 9.1 RBC 4.86 HGB 14.2 HCT 44.1 MCV 90.7 MCH 29.2 MCHC 32.2 RDW 13.1 PLT 249 MPV 11.5 NEUTROPHILS % 67.6 LYMPHOCYTES % 23.1 MONOCYTES % 4.8 EOSINOPHILS % 3.3 04/29/2021 [facility] Final Result * T3 FREE (OUTSIDE LAB) (04/29/2021) FREE T3 3.5 04/29/2021 us [facility] LAB-OUTSIDE/ABSTRACTED Final Result * THYROXINE, FREE (FT4) (04/29/2021) Pathologist [facility] FREE T4 1.2 04/29/2021 us [facility] Final Result * TSH (OUTSIDE LAB) (04/29/2021) [facility] TSH 1.11 04/29/2021 us Doc [facility] LAB-OUTSIDE/ABSTRACTED Final Result * CMP (ABSTRACTED LAB) (04/29/2021) [facility] SODIUM S/P/B 141 POTASSIUM S/P/B 4.3 CHLORIDE S/P/B 106 CO2 20 BUN 11 CREATININE S/P/B 0.58 0.5 - 1.0 CALCIUM S/P/B 9.4 GLUCOSE 102 mg/dL TOTAL PROTEIN S/P/B 7.0 ALBUMIN S/P/B 4.2 3.5 - 5.0 AST 17 ALT 16 ALKALINE PHOSPHATASE S/P/B 70 BILIRUBIN TOTAL S/P/B 0.4 04/29/2021 us Doc [facility] LAB-OUTSIDE/ABSTRACTED Final Result * LIPID PANEL (04/29/2021) [facility] CHOLESTEROL 228 HDL 45 TRIGLYCERIDES 175 NON HDL CHOLESTEROL 182 CHOL/HDL RATIO 5.0 LDL (CALCULATED) 151 04/29/2021 us Doc [facility] Final Result documented in this encounter Visit Diagnoses Not on filedocumented in this encounter Care Teams Door Liner Helper Relationship Specialty Start Date End Date Kennedy Perry MD [address] [place] [phone] PCP - General INTERNAL MEDICINE 02/07/19 Van Butt MD [address] [place] [address] EP Light Armored Vehicle Officer CLINICAL CARDIAC ELECTROPHYSIOLOGY 07/13/20 Jett Borja PA-C [address] [place] [phone] Sprinkler Electrophysiology 07/13/20 Roya Fisher MD [address] [place] [phone] Consulting Physician Electrophysiology 06/15/24 documented as of this encounter
--- OUTSIDE RECORDS SUMMARY | 2024-09-20 13:38 | XMS_ITS | Encounter Summary ---
Author Organization [facility] Address [facility] [place] [address] Care Team Providers Care Cabinet Installer Name Role Phone Kennedy Perry MD Primary Care Provider [phone] Van Butt MD Unavailable Unavailable Jett Borja PA-C Unavailable [phone] Roya Fisher MD Unavailable [phone] Encounter Details Date Type Department Care Team (Late st Contact Info) Description 03/14/2020 Hospital Follow-up Call [facility] [address] [place] [address] Scarlet Godwin, RN Social History Tobacco Use Types Packs/Day Years [...] have Coronavirus / COVID-19? No / Unsure 03/12/2020 5:15 PM CDT documented as of this encounter Functional [...] 5:20 PM CDT Eva Villafuerte RN Active documented as of this encounter Mental Status * Because of a physical, mental, or emotional condition, do you have serious difficulty concentrating, remembering, or making decisions? Answer Entry Date Author Status No 03/12/2020 5:20 PM CDT Eva Villafuerte RN Active documented in this encounter Plan of Treatment Not on file documented as of this encounter Visit Diagnoses Not on filedocumented in this encounter Care Teams Cabinet Installer Relationship Specialty Start Date End Date Kennedy Perry MD [address] [place] [address] PCP - General INTERNAL MEDICINE 02/07/19 Vna Butt MD [address] [place] [phone] EP Fitter Type Bar And Segment CLINICAL CARDIAC ELECTROPHYSIOLOGY 07/13/20 Jett Borja PA-C [address] [place] [phone] Physician Implementation Specialist Payroll Electrophysiology 07/13/20 Roya Fisher MD [address] [place] [address], [place] [address] Consulting Physician Electrophysiology 06/15/24 documented as of this encounter
--- OUTSIDE RECORDS SUMMARY | 2024-09-20 13:38 | XMS_ITS | Clinical Summary ---
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 Plan of Treatment No Plan of [...] 1 9:27AM By SUE VIRGEN MA ; [facility] Fish Oil 1000 MG OR CAPS 09/23/2010 Provider: Diagnosis: Last Documented On 1 9:28AM By SUE VIRGEN MA ; [facility] B Complex-Vitamin B12 OR TABS 09/23/2010 Provider: Diagnosis: Last Documented On 1 9:28AM By SUE VIRGEN MA ; [facility] Medications Administered Includes: Administered Medications from this [...] Allergies Includes: Active Allergies No Known Allergies Clinical Notes Includes: Clinical Notes from this encounter No Clinical Notes Recorded
--- OUTSIDE RECORDS SUMMARY | 2024-09-20 13:39 | XMS_ITS | Clinical Summary ---
Author Organization [facility] Address [address] [place] [address] Phone Care Team Providers Care Spinner Box Name Role Phone Unavailable Unavailable Unavailable Reason for Visit and Chief Complaint gynecologic annual exam - The Chief Complaint is: WWE Plan of Treatment - OTHER - Last Documented On 09/23/2010 10:00AM ; [facility] Follow-up 1 yr - Last Documented On 09/23/2010 10:00AM ; [facility] ? 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 SCREEN MAMMOGRAM NECRadiology/*MAMMOGRAM: Mammogram - Last Documented On 09/23/2010 10:00AM ; [facility] ? Cervical Pap SmearIn office procedures/*Clia Waived Labs: Pap Smear Taken - Last Documented On 09/23/2010 10:00AM ; [facility] ? SCREEN MAL NEOP-RECTUMIn office procedures/*Clia Waived Labs: *FIT Test (Fecal Occult Test)Outside Procedures: Colonoscopy - Last Documented On 09/23/2010 10:00AM ; [facility] Pending Tests Order Diagnosis Results Due Ordering P cornelder In office procedures - *Clia Waived Labs Pap Smear Taken SCREEN MAL NEOP-CERVIX 10/07/10 LOUIE COLMENARES M.D. Last Documented On 1 9:52AM ; [facility] Radiology @ other - *MAMMOGRAPHY Mammogram SCREEN MAMMOGRAM NEC 10/07/10 LOUIE ARMSTRONG M.D. Last Documented On 1 9:57AM ; [facility] In office procedures - *Clia Waived Labs *FIT Test (Fecal Occult Test) SCREEN MAL NEOP-RECTUM 10/07/10 LOUIE COLMENARES M.D. Last Documented On 1 9:52AM ; [facility] Lab SUREPATH PAP AND HR HPV DNA 10/23/10 LOUIE COLMENARES M.D. Last Documented On 1 9:31AM ; [facility] Outside Procedures Colonoscopy SCREEN MAL NEOP-RECTUM 10/14 LOUIE COLMENARES M.D. Last Documented On 1 10:16AM ; [facility] Instructions to patient Instructions for patient : B reast Self Exam discussed. Reviewed monthly self breast examination and technique Last Documented On 1 9:39AM ; [facility] Recommend diet and exercise at least 30 min three times per week Last Documented On 1 9:39AM ; [facility] Discussed Gardasil vaccinati on and recommend vaccination for HPV prevention. Handout given. Patient undertsands sexual transmission of high-risk HPV and association with abnormal pap smear and cervical cancer. recommend to decrease high risk behaviors such as: number of sexual partners, smoking, and contraceptive use Last Documented On 1 9:39AM ; [facility] Recommend preventative vacci nation including but not limited to influenza/flu vaccine, DTP, Rubella, Hepatitis B vaccination series Last Documented On 1 9:39AM ; [facility] Recommend annual pap smear e xamination or every three year if high risk hpv negative and 3 consecutive normal pap examination during preceding three years Last Documented On 1 9:39AM ; [facility] Recommend TSH, fasting gluco se, fasting lipid panel, CBC, BMP Last Documented On 1 9:39AM ; [facility] Recommend Calcium supplement ation and weight bearing exercise Last Documented On 1 9:39AM ; [facility] Recommended Bone Density Last Documented On 9:39AM ; [facility] Recommended Colonoscopy Pt r eferred to Gastroenetrologist. Pt understands that recommendation for colonoscopy is every 10 years after the age of 50 or age of 40 if first degree relative with history of colon cancer. Patient understands that failure to follow recommendation can lead to delayed diagnosis of colon cancer and patient accepts all responsibility regarding scheduling and follow up with veterinary technician Last Documented On 9:39AM ; [facility] Assessments Includes: Assessments from this encounter Findings - MAMMOGRAM SCREENING - Last Documented On 09/23/2010 10:00AM ; [facility] - NORMAL FEMALE EXAM - Last Documented On 09/23/2010 10:00AM ; [facility] - Asymptomatic postmenopausal status - Last Documented On 09/23/2010 10:00AM ; [facility] - Screening Malig. Neoplasm Rectum - Last Documented On 09/23/2010 10:00AM ; [facility] Instructions Includes: Instructions from this encounter Instructions to patient Instructions for patient : B reast Self Exam discussed. Reviewed monthly self breast examination and technique Last Documented On 9:39AM ; [facility] Recommend diet and exercise at least 30 min three times per week Last Documented On 9:39AM ; [facility] Discussed Gardasil vaccinati on and recommend vaccination for HPV prevention. Handout given. Patient undertsands sexual transmission of high-risk HPV and association with abnormal pap smear and cervical cancer. recommend to decrease high risk behaviors such as: number of sexual partners, smoking, and contraceptive use Last Documented On 9:39AM ; [facility] Recommend preventative vacci nation including but not limited to influenza/flu vaccine, DTP, Rubella, Hepatitis B vaccination series Last Documented On 9:39AM ; [facility] Recommend annual pap smear e xamination or every three year if high risk hpv negative and 3 consecutive normal pap examination during preceding three years Last Documented On 1 9:39AM ; [facility] Recommend TSH, fasting gluco se, fasting lipid panel, CBC, BMP Last Documented On 1 9:39AM ; [facility] Recommend Calcium supplement ation and weight bearing exercise Last Documented On 1 9:39AM ; [facility] Recommended Bone Density Last Documented On 1 9:39AM ; [facility] Recommended Colonoscopy Pt r eferred to Gastroenetrologist. Pt understands that recommendation for colonoscopy is every 10 years after the age of 50 or age of 40 if first degree relative with history of colon cancer. Patient understands that failure to follow recommendation can lead to delayed diagnosis of colon cancer and patient accepts all responsibility regarding scheduling and follow up with veterinary technician Last Documented On 1 9:39AM ; [facility] Medical Equipment - Implanted Devices Includes: Current Devices No Medical Equipment Recorded Medications Includes: Medications discussed during this encounter and other current Medications Current Medications (continue as prescribed) Calcium 500 MG OR CHEW 09/23/2010 Provider: Diagnosis: Last Documented On 1 9:27AM By SUE VIRGEN MA ; [facility] Fish Oil 1000 MG OR CAPS 09/23/2010 Provider: Diagnosis: Last Documented On 1 9:28AM By SUE VIRGEN MA ; [facility] B Complex-Vitamin B12 OR TABS 09/23/2010 Provider: Diagnosis: Last Documented On 1 9:28AM By SUE VIRGEN MA ; [facility] Medications Administered Includes: Administered Medications from this encounter No Administered Medications Recorded Vital Signs Includes: Vital Signs from this encounter Vital Name 09/23/2010 09:30A Blood Pressure Sitting (mmHg) 134/82 Height (in) 54 Weight (lb) 174 Body Mass Index (kg/m2) 42.0 Body Surface Area (m2) 1.6 Last Documented: On 09/23/2010 9:14AM ; [facility] Results Includes: Results discussed during this encounter No Results Recorded For Specified Dates History of Present Illness Includes: History of Present Illness from this encounter BUTCH AGUIRRE is a 55 year old female. - No complaints. Social History Description Last Updated Age of 1st intercourse was was 19 2010 Last Documented On 1 10:00AM ; [facility] Cigarette smoking 09/23/2010 Last Documented On 1 10:00AM ; [facility] Cigarette smoking 1 pack(s)/day 09/23/19 11 Last Documented On 1 10:00AM ; [facility] In monogamous relationship 09/23/2010 Last Documented On 1 10:00AM ; [facility] Not using alcohol 09/23/2010 Last Documented On 1 10:00AM ; [facility] Not using drugs 09/23/2010 Last Documented On 1 10:00AM ; [facility] Sexually active 09/23/2010 Last Documented On 1 10:00AM ; [facility] Sexually active with 1 partners in the l ast year 09/23/2010 Last Documented On 1 10:00AM ; [facility] Marital history 08/12/2009 Last Documented On 1 9:12AM ; [facility] The racial background white 08/12/2009 Last Documented On 1 9:12AM ; [facility] Smoking Status Unknown Procedures and Surgical History Includes: Procedures from this encounter Procedures Code Diagnosis Performing Provider Service L ocation Service Date cervical Pap smear 03539 Last Documented On 1 9:39AM ; [facility] a fecal occult blood test was negative 01448 Last Documented On 1 9:39AM ; [facility] Surgical History Last Updated Dilation + Curettage 09/23/2010 Last Documented On 1 10:00AM ; [facility] History of cholecystectomy 09/23/2010 Last Documented On 1 10:00AM ; [facility] No Bilateral salpingo-oophorectomy 09/23 Last Documented On 1 10:00AM ; [facility] No Breast Biopsy 09/23/2010 Last Documented On 1 10:00AM ; [facility] No Ectopic surgery 09/23/2010 Last Documented On 1 10:00AM ; [facility] No Endometrial Ablation 09/23/2010 Last Documented On 1 10:00AM ; [facility] No history of appendectomy 09/23/2010 Last Documented On 1 10:00AM ; [facility] No history of Loop electrode excision of cervix (LEEP) 09/23/2010 Last Documented On 1 10:00AM ; [facility] No history of total abdominal hysterecto my 09/23/2010 Last Documented On 1 10:00AM ; [facility] No history of vaginal hysterectomy 09/23 Last Documented On 1 10:00AM ; [facility] No Laparoscopic Hysterectomy 09/23/2010 Last Documented On 1 10:00AM ; [facility] No Ovarian Cystectomy 09/23/2010 Last Documented On 1 10:00AM ; [facility] No Tonsillectomy 09/23/2010 Last Documented On 1 10:00AM ; [facility] History of tubal ligation 09/23/2010 Last Documented On 1 10:00AM ; [facility] Medical History Includes: Medical History addressed during this encounter Description Last Updated section 09/23/2010 Last Documented On 1 10:00AM ; [facility] Aborta 1 09/23/2010 Last Documented On 1 10:00AM ; [facility] 3 09/23/2010 Last Documented On 1 10:00AM ; [facility] Last mammogram date: 06/201009/23/2010 Last Documented On 1 10:00AM ; [facility] Last pap smear date 200909/23/2010 Last Documented On 1 10:00AM ; [facility] LMP: 200509/23/2010 Last Documented On 1 10:00AM ; [facility] Para 2 09/23/2010 Last Documented On 1 10:00AM ; [facility] Patient recently had a dexa scan 011 Last Documented On 1 10:00AM ; [facility] 2 living children 08/12/2009 Last Documented On 1 9:12AM ; [facility] A mammogram was performed 06/28/0808/12 Last Documented On 1 9:12AM ; [facility] Family History Includes: Family History addressed during this encounter Description Last Updated Spouse name: DON 09/23/2010 Last Documented On 1 10:00AM ; [facility] No family history of diabetes mellitus 0 09/23/2010 Last Documented On 1 10:00AM ; [facility] No family history of hypercholesterolemi a 09/23/2010 Last Documented On 1 10:00AM ; [facility] No family history of hypertension 2010 Last Documented On 1 10:00AM ; [facility] No family history of malignant female br east neoplasm 09/23/2010 Last Documented On 1 10:00AM ; [facility] No family history of malignant neoplasm of the large intestine 09/23/2010 Last Documented On 1 10:00AM ; [facility] No family history of malignant neoplasm of the ovary 09/23/2010 Last Documented On 1 10:00AM ; [facility] No family history of uterine cancer 03/2011 Last Documented On 1 10:00AM ; [facility] No heart disease 09/23/2010 Last Documented On 1 10:00AM ; [facility] Review of Systems Includes: Review of Systems from this encounter Systemic: Not tiring easily. No fever, no chills, and no post coital bleeding. No night sweats. Head: No headache. Neck: No neck pain and no swollen glands in the neck. Cardiovascular: No chest pain or discomfort, no palpitations, and no varicosities. Pulmonary: No dyspnea, no cough, and no wheezing. Gastrointestinal: No heartburn and no indigestion. No nausea, no vomiting, no abdominal pain, no diarrhea, and no constipation. Genitourinary: No change in urinary frequency and no incomplete emptying of bladder. No urinary loss of control, no dysuria, no pain during intercourse, no vaginal dryness, and no menorrhagia. No dysmenorrhea. No nonmenstrual bleeding. Endocrine: No polydipsia, no temperature intolerance, no hot flashes, libido has not changed, and no loss of hair from the head. Hematologic: No blood clotting problems. Musculoskeletal: No back pain and no localized joint pain. Psychological: No depression and a desire to continue living. Skin: No pruritus and no rash. No boils. Allergic and Immunologic: No hay fever. Mental Status Includes: Mental Status from this encounter Description Oriented to time, place, and person A desire to continue living Functional Status Includes: Functional Status from this encounter No Functional Status Recorded Physical Exam Includes: Physical Exam from this encounter Immunizations Includes: Immunizations addressed during this encounter Vaccine Dose # Date Site Reaction(s) Status Source Td 1 Complete (Reported) Adelita ent Last Documented On 1 9:59AM ; [facility] Allergies Includes: Active Allergies No Known Allergies Encounters Encounter Provider Location Date Check-In Time Check-Out Time Diagnosis 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 [facility] CRIBBER 09/23/19 11 9:00AM 9:56AM Normal Female Exam,Other Screening For Malignant Neoplasm of Breast Z12.39,Screening Malig. Neoplasm Rectum,Asymptomati c Postmenopausal Status Clinical Notes Includes: Clinical Notes from this encounter No Clinical Notes Recorded
--- OUTSIDE RECORDS SUMMARY | 2024-09-20 13:39 | XMS_ITS ---
Author Organization [facility] Address [address] [place] [address] Phone Care Team Providers Care Scientist Immunology Name Role Phone Unavailable Unavailable Unavailable Plan of Treatment Instructions to patient Instructions for patient : B reast Self Exam discussed. Reviewed monthly self breast examination and technique Last Documented On 2 9:33AM ; [facility] Recommend diet and exercise at least 30 min three times per week Last Documented On 2 9:33AM ; [facility] Discussed Gardasil vaccinati on and recommend vaccination for HPV prevention. Handout given. Patient undertsands sexual transmission of high-risk HPV and association with abnormal pap smear and cervical cancer. recommend to decrease high risk behaviors such as: number of sexual partners, smoking, and contraceptive use Last Documented On 2 9:33AM ; [facility] Recommend preventative vacci nation including but not limited to influenza/flu vaccine, DTP, Rubella, Hepatitis B vaccination series Last Documented On 2 9:33AM ; [facility] Recommend annual pap smear e xamination or every three year if high risk hpv negative and 3 consecutive normal pap examination during preceding three years Last Documented On 2 9:33AM ; [facility] Recommend TSH, fasting gluco se, fasting lipid panel, CBC, BMP Last Documented On 2 9:33AM ; [facility] Recommend Calcium supplement ation and weight bearing exercise Last Documented On 2 9:33AM ; [facility] Recommended Bone Density Last Documented On 2 9:33AM ; [facility] Recommended Colonoscopy Pt r eferred to Gastroenetrologist. Pt understands that recommendation for colonoscopy is every 10 years after the age of 50 or age of 40 if first degree relative with history of colon cancer. Patient understands that failure to follow recommendation can lead to delayed diagnosis of colon cancer and patient accepts all responsibility regarding scheduling and follow up with broomcorn scraper Last Documented On 2 9:33AM ; [facility] Instructions for patient : B reast Self Exam discussed. Reviewed monthly self breast examination and technique Last Documented On 1 9:39AM ; [facility] Recommend diet and exercise at least 30 min three times per week Last Documented On 1 9:39AM ; [facility] Discussed Gardasil vaccinati on and recommend vaccination for HPV prevention. Handout given. Patient undertsands sexual transmission of high-risk HPV and association with abnormal pap smear and cervical cancer. recommend to decrease high risk behaviors such as: number of sexual partners, smoking, and contraceptive use Last Documented On 1 9:39AM ; [facility] Recommend preventative vacci nation including but not limited to influenza/flu vaccine, DTP, Rubella, Hepatitis B vaccination series Last Documented On 1 9:39AM ; [facility] Recommend annual pap smear e xamination or every three year if high risk hpv negative and 3 consecutive normal pap examination during preceding three years Last Documented On 1 9:39AM ; [facility] Recommend TSH, fasting gluco se, fasting lipid panel, CBC, BMP Last Documented On 1 9:39AM ; [facility] Recommend Calcium supplement ation and weight bearing exercise Last Documented On 1 9:39AM ; [facility] Recommended Bone Density Last Documented On 1 9:39AM ; [facility] Recommended Colonoscopy Pt r eferred to Gastroenetrologist. Pt understands that recommendation for colonoscopy is every 10 years after the age of 50 or age of 40 if first degree relative with history of colon cancer. Patient understands that failure to follow recommendation can lead to delayed diagnosis of colon cancer and patient accepts all responsibility regarding scheduling and follow up with broomcorn scraper Last Documented On 1 9:39AM ; [facility] Assessments Includes: Assessments for all patient encounters Findings Encounter Date Asymptomatic postmenopausal status HUMAN RESOURCES TRAINING MANAGER EXAM with LOUIE COLMENARES M.D. 09/24/2011 Last Documented On 2 9:42AM ; [facility] MAMMOGRAM SCREENING HUMAN RESOURCES TRAINING MANAGER EXAM with LOUIE ESCOTO M.D. 09/24/2011 Last Documented On 2 9:42AM ; [facility] NORMAL FEMALE EXAM HUMAN RESOURCES TRAINING MANAGER EXAM with LOUIE BENITEZ M.D. 09/24/2011 Last Documented On 2 9:42AM ; [facility] Screening Malig. Neoplasm Rectum HUMAN RESOURCES TRAINING MANAGER EXAM with S AYDEN COLMENARES M.D. 09/24/2011 Last Documented On 2 9:42AM ; [facility] Asymptomatic postmenopausal status HUMAN RESOURCES TRAINING MANAGER EXAM with LOUIE COLMENARES M.D. 09/23/2010 Last Documented On 1 10:00AM ; [facility] MAMMOGRAM SCREENING HUMAN RESOURCES TRAINING MANAGER EXAM with LOUIE ESCOTO M.D. 09/23/2010 Last Documented On 1 10:00AM ; [facility] NORMAL FEMALE EXAM HUMAN RESOURCES TRAINING MANAGER EXAM with LOUIE BENITEZ M.D. 09/23/2010 Last Documented On 1 10:00AM ; [facility] Screening Malig. Neoplasm Rectum HUMAN RESOURCES TRAINING MANAGER EXAM with Gerald COLMENARES M.D. 09/23/2010 Last Documented On 1 10:00AM ; [facility] Instructions Includes: Instructions for all patient encounters Instructions to patient Instructions for patient : B reast Self Exam discussed. Reviewed monthly self breast examination and technique Last Documented On 2 9:33AM ; [facility] Recommend diet and exercise at least 30 min three times per week Last Documented On 2 9:33AM ; [facility] Discussed Gardasil vaccinati on and recommend vaccination for HPV prevention. Handout given. Patient undertsands sexual transmission of high-risk HPV and association with abnormal pap smear and cervical cancer. recommend to decrease high risk behaviors such as: number of sexual partners, smoking, and contraceptive use Last Documented On 2 9:33AM ; [facility] Recommend preventative vacci nation including but not limited to influenza/flu vaccine, DTP, Rubella, Hepatitis B vaccination series Last Documented On 2 9:33AM ; [facility] Recommend annual pap smear e xamination or every three year if high risk hpv negative and 3 consecutive normal pap examination during preceding three years Last Documented On 2 9:33AM ; [facility] Recommend TSH, fasting gluco se, fasting lipid panel, CBC, BMP Last Documented On 2 9:33AM ; [facility] Recommend Calcium supplement ation and weight bearing exercise Last Documented On 2 9:33AM ; [facility] Recommended Bone Density Last Documented On 2 9:33AM ; [facility] Recommended Colonoscopy Pt r eferred to Gastroenetrologist. Pt understands that recommendation for colonoscopy is every 10 years after the age of 50 or age of 40 if first degree relative with history of colon cancer. Patient understands that failure to follow recommendation can lead to delayed diagnosis of colon cancer and patient accepts all responsibility regarding scheduling and follow up with broomcorn scraper Last Documented On 2 9:33AM ; [facility] Instructions for patient : B reast Self Exam discussed. Reviewed monthly self breast examination and technique Last Documented On 1 9:39AM ; [facility] Recommend diet and exercise at least 30 min three times per week Last Documented On 1 9:39AM ; [facility] Discussed Gardasil vaccinati on and recommend vaccination for HPV prevention. Handout given. Patient undertsands sexual transmission of high-risk HPV and association with abnormal pap smear and cervical cancer. recommend to decrease high risk behaviors such as: number of sexual partners, smoking, and contraceptive use Last Documented On 1 9:39AM ; [facility] Recommend preventative vacci nation including but not limited to influenza/flu vaccine, DTP, Rubella, Hepatitis B vaccination series Last Documented On 1 9:39AM ; [facility] Recommend annual pap smear e xamination or every three year if high risk hpv negative and 3 consecutive normal pap examination during preceding three years Last Documented On 1 9:39AM ; [facility] Recommend TSH, fasting gluco se, fasting lipid panel, CBC, BMP Last Documented On 1 9:39AM ; [facility] Recommend Calcium supplement ation and weight bearing exercise Last Documented On 1 9:39AM ; [facility] Recommended Bone Density Last Documented On 1 9:39AM ; [facility] Recommended Colonoscopy Pt r eferred to Gastroenetrologist. Pt understands that recommendation for colonoscopy is every 10 years after the age of 50 or age of 40 if first degree relative with history of colon cancer. Patient understands that failure to follow recommendation can lead to delayed diagnosis of colon cancer and patient accepts all responsibility regarding scheduling and follow up with broomcorn scraper Last Documented On 1 9:39AM ; [facility] Medical Equipment - Implanted Devices Includes: Current and historical Devices No Medical Equipment Recorded Medications Includes: Current and historical Medications Current Medications (continue as prescribed) Calcium 500 MG OR CHEW 09/23/2010 Provider: Diagnosis: Last Documented On 1 9:27AM By SUE VIRGEN MA ; [facility] Fish Oil 1000 MG OR CAPS 09/23/2010 Provider: Diagnosis: Last Documented On 1 9:28AM By SUE VIRGEN MA ; [facility] B Complex-Vitamin B12 OR TABS 09/23/2010 Provider: Diagnosis: Last Documented On 1 9:28AM By SUE VIRGEN MA ; [facility] Medications Administered Includes: Administered Medications in patient's chart No Administered Medications Recorded Results Includes: Results from 09/20/2023 through 09/20/2024 No Results Recorded For Specified Dates History of Present Illness History of Present Illness not supported for this document type No History of Present Illness Recorded Social History Description Last Updated Cigarette smoking 0.5 pack(s)/day 2011 Last Documented On 2 9:42AM ; [facility] Not exercising regularly 09/24/2011 Last Documented On 2 9:42AM ; [facility] Age of 1st intercourse was was 19 2010 Last Documented On 1 10:00AM ; [facility] In monogamous relationship 09/23/2010 Last Documented On 1 10:00AM ; [facility] Not using alcohol 09/23/2010 Last Documented On 1 10:00AM ; [facility] Not using drugs 09/23/2010 Last Documented On 1 10:00AM ; [facility] Sexually active 09/23/2010 Last Documented On 1 10:00AM ; [facility] Sexually active with 1 partners in the l ast year 09/23/2010 Last Documented On 1 10:00AM ; [facility] Marital history 08/12/2009 Last Documented On 9 10:03AM ; [facility] The racial background white 08/12/2009 Last Documented On 9 10:03AM ; [facility] Smoking Status Unknown Procedures and Surgical History Surgical History Last Updated Dilation + Curettage 09/23/2010 Last Documented On 1 10:00AM ; [facility] History of cholecystectomy 09/23/2010 Last Documented On 1 10:00AM ; [facility] No Bilateral salpingo-oophorectomy 09/23 Last Documented On 1 10:00AM ; [facility] No Breast Biopsy 09/23/2010 Last Documented On 1 10:00AM ; [facility] No Ectopic surgery 09/23/2010 Last Documented On 1 10:00AM ; [facility] No Endometrial Ablation 09/23/2010 Last Documented On 1 10:00AM ; [facility] No history of appendectomy 09/23/2010 Last Documented On 1 10:00AM ; [facility] No history of Loop electrode excision of cervix (LEEP) 09/23/2010 Last Documented On 1 10:00AM ; [facility] No history of total abdominal hysterecto my 09/23/2010 Last Documented On 1 10:00AM ; [facility] No history of vaginal hysterectomy 09/23 Last Documented On 1 10:00AM ; [facility] No Laparoscopic Hysterectomy 09/23/2010 Last Documented On 1 10:00AM ; [facility] No Ovarian Cystectomy 09/23/2010 Last Documented On 1 10:00AM ; [facility] No Tonsillectomy 09/23/2010 Last Documented On 1 10:00AM ; [facility] History of tubal ligation 09/23/2010 Last Documented On 1 10:00AM ; [facility] Medical History Includes: Medical History in patient's chart Description Last Updated A colonoscopy was performed 2010 012 Last Documented On 2 9:42AM ; [facility] Last mammogram date: 06/201109/24/2011 Last Documented On 2 9:42AM ; [facility] Last pap smear date 09/24/2011 09/24/2011 Last Documented On 2 9:42AM ; [facility] Not using contraception 09/24/2011 Last Documented On 2 9:42AM ; [facility] Patient recently had a dexa scan 2010 Last Documented On 2 9:42AM ; [facility] Result: normal 09/24/2011 Last Documented On 2 9:42AM ; [facility] Result: normal 09/24/2011 Last Documented On 2 9:42AM ; [facility] section 09/23/2010 Last Documented On 1 10:00AM ; [facility] Aborta 1 09/23/2010 Last Documented On 1 10:00AM ; [facility] 3 09/23/2010 Last Documented On 1 10:00AM ; [facility] LMP: 2006 09/23/2010 Last Documented On 1 10:00AM ; [facility] Para 2 09/23/2010 Last Documented On 1 10:00AM ; [facility] 2 living children 08/12/2009 Last Documented On 9 10:03AM ; [facility] A mammogram was performed 06/28/0808/12 Last Documented On 9 10:03AM ; [facility] Family History Includes: Family History in patient's chart Description Last Updated Spouse name: DON 09/23/2010 Last Documented On 1 10:00AM ; [facility] No family history of diabetes mellitus 0 09/23/2010 Last Documented On 1 10:00AM ; [facility] No family history of hypercholesterolemi a 09/23/2010 Last Documented On 1 10:00AM ; [facility] No family history of hypertension 2010 Last Documented On 1 10:00AM ; [facility] No family history of malignant female br east neoplasm 09/23/2010 Last Documented On 1 10:00AM ; [facility] No family history of malignant neoplasm of the large intestine 09/23/2010 Last Documented On 1 10:00AM ; [facility] No family history of malignant neoplasm of the ovary 09/23/2010 Last Documented On 1 10:00AM ; [facility] No family history of uterine cancer 03/2011 Last Documented On 1 10:00AM ; [facility] No heart disease 09/23/2010 Last Documented On 1 10:00AM ; [facility] Review of Systems Review of Systems not supported for this document type No Review of Systems Recorded Mental Status Description Oriented to time, place, and person A desire to continue living Functional Status No Functional Status Recorded Physical Exam Physical Exam not supported for this document type No Physical Exam Recorded Immunizations Includes: Immunizations in patient's chart Vaccine Dose # Date Site Reaction(s) Status Source Td 1 Complete (Reported) Adelita ent Last Documented On 1 9:59AM ; [facility] Allergies Includes: Active, inactive, and resolved Allergies No Known Allergies Clinical Notes Includes: Signed Clinical Notes starting from 09/04/2022 No Clinical Notes Recorded
--- OUTSIDE RECORDS SUMMARY | 2024-09-20 13:39 | XMS_ITS | Clinical Summary ---
Author Organization [facility] Address [address] [place] [address] Care Team Providers Care Executive Director Name Role Phone Kennedy Perry MD Primary Care Provider [phone] Van Butt MD Unavailable Unavailable Jett Borja PA-C Unavailable [phone] Roya Fisher MD Unavailable [phone] Allergies No known active allergies Medications PROAIR HFA 108 (90 Base) MCG/ACT inhaler Inhale 1 puff into the lungs every 4 (four) hours as needed. 0 Active multi vitamin/minerals tablet Take 1 tablet by mouth daily. Active methIMAzole 5 MG tablet Take 5 mg by mouth every other day. Active montelukast 10 MG tablet Take 1 tablet (10 mg total) by mouth nightly at bedtime. Active budesonide-formot gina 80-4.5 MCG/ACT inhaler Inhale 2 puffs into the lungs 2 (two) times daily. Active calcium carbonate 1250 (500 Ca) MG tablet Take 1 tablet (1,250 mg total) by mouth daily. Active Turmeric Curcumin 500 MG Cap Take by mouth daily. Active magnesium oxide 250 MG tablet Take 1 tablet (250 mg total) by mouth daily. Active atorvastatin 20 MG tablet Take 1 tablet (20 mg total) by mouth daily. 1 Active ipratropium 0.06 % nasal spray by Nasal route 2 (two) times a day. 1 Active Cholecalciferol (VITAMIN D-3) 25 MCG (1000 UT) Cap Take 1 tablet by mouth daily. Active zinc gluconate 50 MG Tab Take 1 tablet (50 mg total) by mouth daily. Active MELATONIN OR Take by mouth nightly as needed. Active metoprolol succinate ER (TOPROL-XL) 25 MG 24 hr tabletIndications :Paroxysmal atrial fibrillation with rapid ventricular response ([facility] HHS/HCC) take one tablet by mouth daily 90 tablet 3 4 Active venlafaxine XR (EFFEXOR-XR) 37.5 MG 24 hr capsule Take 1 capsule (37.5 mg total) by mouth daily. 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) 05/19/2021 Left axis deviation 05/19/2021 Paroxysmal atrial fibrillation ([facility] H[facility]) 03/12/2020 Atrial flutter ([facility] HHS/HCC) 03/12/2020 Hyperthyroidism 03/12/2020 Hypotension 03/12/2020 Family History Medical History Relation Comments Stroke Father Cancer Mother Relation Status Comments Father Mother Social History Tobacco Use Types Packs/Day Years Used Date Smoking Tobacco: Every Day Cigarettes Smokeless Tobacco: Never Tobacco Cessation:Ready to Q uit: Not Asked; Counseling Given: Not Answered Comments:trying to quit Alcohol Use Standard Drinks/Week [...] Orientation Straight 03/12/2020 5: 18 PM CDT Last Filed Vital Signs Vital Sign Reading Time Taken Comments Blood Pressure 130/80 06/15/2024 11:03 AM CDT Pulse 83 06/15/2024 11:03 AM CDT Temperature 35.6 C (96.1 F) 06/25/2021 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 Respiratory Rate 16 06/15/2024 11:03 AM CDT Oxygen Saturation 93% 06/15/2024 11:03 AM CDT Inhaled Oxygen Concentration - - Weight 77.4 kg (170 lb 9.6 oz) 06/15/2024 11:03 AM CDT Height 160 cm (5' 3 ) 06/15/2024 11:03 AM CDT Body Mass Index 30.22 06/15/2024 11:03 AM CDT Plan of Treatment Health Maintenance Due Date Last Done Comments Colorectal Cancer Screening Colonoscopy (10 Years) 1955 Hepatitis C 1973 DTaP, Tdap and Td Vaccines ( 1 - Tdap) 1974 Mammogram Screening 1995 RSV Immunization or 60+ Years (1 - Risk 60-74 years 1-dose series) 2015 Pneumococcal Vaccine: 65+ Years (2 of 2 - PPSV23 or PCV20) 08/28/2017 07/03/2017 Annual Medicare Wellness Visit 2020 Dexa Scan (General) 2020 COVID-19 Vaccine (3 - 2023-2 5 season) 2024 11/12/2020, 10/22/2020 Influenza Adult (#1) 2024 Zoster Vaccines Completed 02/12/2019, 12/10/2018 Meningococcal B Vaccine Aged Out No l onger eligible based on patient's age to complete this topic Meningococcal Vaccine Aged Out No brendan she eligible based on patient's age to complete this topic RSV Immunizations Under 20 Months Aged Out No longer eligible b ased on patient's age to complete this topic [place] [address] [facility] Member Subscriber Plan / Payer (Ef fective 2009-Present) Name:Marcella Aguirre Relation to Subscriber:Spouse Name:AMRITA AGUIRRE Date of :1954 (Home) Address: [address] [place] [address] Payer ID:Not on file Type:Not on file Address: [address] [place] [id number] MEDICARE Advance Directives * Full Code (Latest Code Status on File) Date Activated Date Inactivated Comments 03/12/2020 4:05 PM 03/13/2020 4:24 PM Care Teams Executive Director Relationship Specialty Start Date End Date Kennedy Perry MD [address] [place] [id number] PCP - General INTERNAL MEDICINE 02/07/19 Van Butt MD [address] [place] [address] EP Insulation Sprayer CLINICAL CARDIAC ELECTROPHYSIOLOGY 07/13/20 Jett Borja PA-C [address] [place] [phone] Physician Repairer [employer] Electrophysiology 07/13/20 Roya Fisher MD [address] [place] [id number] Consulting Physician Electrophysiology 06/15/24
--- OUTSIDE RECORDS SUMMARY | 2024-09-20 13:39 | XMS_ITS | Clinical Summary ---
Author Organization 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 Follow-up 1 YR (SCHEDULE TODAY) - Last Documented On 09/24/2011 9:42AM ; [facility] ? SCREEN MAMMOGRAM NECRadiology at [facility]/*MAMMOGRAPHY: Mammography - Last Documented On 09/24/2011 9:42AM ; [facility] ? Cervical Pap SmearIn office procedures/*Clia Waived Labs: Pap Smear Taken - Last Documented On 09/24/2011 9:42AM ; [facility] ? SCREEN MAL NEOP-RECTUMIn office procedures/*Clia Waived Labs: *FIT Test (Fecal Occult Test) - Last Documented On 09/24/2011 9:42AM ; [facility] Pending Tests Order Diagnosis Results Due Ordering P rovider In office procedures - *Clia Waived Labs Pap Smear Taken SCREEN MAL NEOP-CERVIX 10/08/11 LOUIE COLMENARES M.D. Last Documented On 2 9:42AM ; [facility] Radiology @ other - *MAMMOGRAPHY Mammography SCREEN MAMMOGRAM NEC 10/08/11 LOUIE ARMSTRONG M.D. Last Documented On 4 1:59PM ; [facility] In office procedures - *Clia Waived Labs *FIT Test (Fecal Occult Test) SCREEN MAL NEOP-RECTUM 10/08/11 LOUIE COLMENARES M.D. Last Documented On 2 9:42AM ; [facility] Instructions to patient Instructions for patient : B reast Self Exam discussed. Reviewed monthly self breast examination and technique Last Documented On 2 9:33AM ; [facility] Recommend diet and exercise at least 30 min three times per week Last Documented On 9:33AM ; [facility] Discussed Gardasil vaccinati on and recommend vaccination for HPV prevention. Handout given. Patient undertsands sexual transmission of high-risk HPV and association with abnormal pap smear and cervical cancer. recommend to decrease high risk behaviors such as: number of sexual partners, smoking, and contraceptive use Last Documented On 9:33AM ; [facility] Recommend preventative vacci nation including but not limited to influenza/flu vaccine, DTP, Rubella, Hepatitis B vaccination series Last Documented On 9:33AM ; [facility] Recommend annual pap smear e xamination or every three year if high risk hpv negative and 3 consecutive normal pap examination during preceding three years Last Documented On 9:33AM ; [facility] Recommend TSH, fasting gluco se, fasting lipid panel, CBC, BMP Last Documented On 9:33AM ; [facility] Recommend Calcium supplement ation and weight bearing exercise Last Documented On 9:33AM ; [facility] Recommended Bone Density Last Documented On 9:33AM ; [facility] Recommended Colonoscopy Pt r eferred to Gastroenetrologist. Pt understands that recommendation for colonoscopy is every 10 years after the age of 50 or age of 40 if first degree relative with history of colon cancer. Patient understands that failure to follow recommendation can lead to delayed diagnosis of colon cancer and patient accepts all responsibility regarding scheduling and follow up with barrel filler Last Documented On 2 9:33AM ; [facility] Assessments Includes: Assessments from this encounter Findings - MAMMOGRAM SCREENING - Last Documented On 09/24/2011 9:42AM ; [facility] - NORMAL FEMALE EXAM - Last Documented On 09/24/2011 9:42AM ; [facility] - Asymptomatic postmenopausal status - Last Documented On 09/24/2011 9:42AM ; [facility] - Screening Malig. Neoplasm Rectum - Last Documented On 09/24/2011 9:42AM ; [facility] Instructions Includes: Instructions from this encounter Instructions to patient Instructions for patient : B reast Self Exam discussed. Reviewed monthly self breast examination and technique Last Documented On 2 9:33AM ; [facility] Recommend diet and exercise at least 30 min three times per week Last Documented On 2 9:33AM ; [facility] Discussed Gardasil vaccinati on and recommend vaccination for HPV prevention. Handout given. Patient undertsands sexual transmission of high-risk HPV and association with abnormal pap smear and cervical cancer. recommend to decrease high risk behaviors such as: number of sexual partners, smoking, and contraceptive use Last Documented On 2 9:33AM ; [facility] Recommend preventative vacci nation including but not limited to influenza/flu vaccine, DTP, Rubella, Hepatitis B vaccination series Last Documented On 2 9:33AM ; [facility] Recommend annual pap smear e xamination or every three year if high risk hpv negative and 3 consecutive normal pap examination during preceding three years Last Documented On 2 9:33AM ; [facility] Recommend TSH, fasting gluco se, fasting lipid panel, CBC, BMP Last Documented On 2 9:33AM ; [facility] Recommend Calcium supplement ation and weight bearing exercise Last Documented On 2 9:33AM ; [facility] Recommended Bone Density Last Documented On 2 9:33AM ; [facility] Recommended Colonoscopy Pt r eferred to Gastroenetrologist. Pt understands that recommendation for colonoscopy is every 10 years after the age of 50 or age of 40 if first degree relative with history of colon cancer. Patient understands that failure to follow recommendation can lead to delayed diagnosis of colon cancer and patient accepts all responsibility regarding scheduling and follow up with barrel filler Last Documented On 2 9:33AM ; [facility] Medical Equipment - Implanted Devices Includes: Current Devices No Medical Equipment Recorded Medications Includes: Medications discussed during this encounter and other current Medications Current Medications (continue as prescribed) Calcium 500 MG OR CHEW 09/23/2010 Provider: Diagnosis: Last Documented On 1 9:27AM By SUE VIRGEN MA ; [facility] Fish Oil 1000 MG OR CAPS 09/23/2010 Provider: Diagnosis: Last Documented On 1 9:28AM By SUE VIRGEN MA ; [facility] B Complex-Vitamin B12 OR TABS 09/23/2010 Provider: Diagnosis: Last Documented On 1 9:28AM By SUE VIRGEN MA ; [facility] Medications Administered Includes: Administered Medications from this encounter No Administered Medications Recorded Vital Signs Includes: Vital Signs from this encounter Vital Name 09/24/2011 09:00A Blood Pressure Sitting (mmHg) 138/82 Weight (lb) 179 Last Documented: On 09/24/2011 8:52AM ; [facility] Results Includes: Results discussed during this encounter No Results Recorded For Specified Dates History of Present Illness Includes: History of Present Illness from this encounter BUTCH AGUIRRE is a 56 year old female. - No complaints. - Menopause has occurred. Social History Description Last Updated Cigarette smoking 09/24/2011 Last Documented On 2 8:48AM ; [facility] Cigarette smoking 0.5 pack(s)/day 2011 Last Documented On 2 9:42AM ; [facility] Not exercising regularly 09/24/2011 Last Documented On 2 9:42AM ; [facility] Age of 1st intercourse was was 19 2010 Last Documented On 2 8:48AM ; [facility] In monogamous relationship 09/23/2010 Last Documented On 2 8:48AM ; [facility] Not using alcohol 09/23/2010 Last Documented On 2 8:48AM ; [facility] Not using drugs 09/23/2010 Last Documented On 2 8:48AM ; [facility] Sexually active 09/23/2010 Last Documented On 2 8:48AM ; [facility] Sexually active with 1 partners in the l ast year 09/23/2010 Last Documented On 2 8:48AM ; [facility] Marital history 08/12/2009 Last Documented On 2 8:48AM ; [facility] The racial background white 08/12/2009 Last Documented On 2 8:48AM ; [facility] Smoking Status Unknown Procedures and Surgical History Includes: Procedures from this encounter Procedures Code Diagnosis Performing Provider Service L ocation Service Date cervical Pap smear 31379 Last Documented On 2 9:33AM ; [facility] a fecal occult blood test was negative 43397 Last Documented On 2 9:33AM ; [facility] Surgical History Last Updated Dilation + Curettage 09/23/2010 Last Documented On 2 8:48AM ; [facility] History of cholecystectomy 09/23/2010 Last Documented On 2 8:48AM ; [facility] No Bilateral salpingo-oophorectomy 09/23 Last Documented On 2 8:48AM ; [facility] No Breast Biopsy 09/23/2010 Last Documented On 2 8:48AM ; [facility] No Ectopic surgery 09/23/2010 Last Documented On 2 8:48AM ; [facility] No Endometrial Ablation 09/23/2010 Last Documented On 2 8:48AM ; [facility] No history of appendectomy 09/23/2010 Last Documented On 2 8:48AM ; [facility] No history of Loop electrode excision of cervix (LEEP) 09/23/2010 Last Documented On 2 8:48AM ; [facility] No history of total abdominal hysterecto my 09/23/2010 Last Documented On 2 8:48AM ; [facility] No history of vaginal hysterectomy 09/23 Last Documented On 2 8:48AM ; [facility] No Laparoscopic Hysterectomy 09/23/2010 Last Documented On 2 8:48AM ; [facility] No Ovarian Cystectomy 09/23/2010 Last Documented On 2 8:48AM ; [facility] No Tonsillectomy 09/23/2010 Last Documented On 2 8:48AM ; [facility] History of tubal ligation 09/23/2010 Last Documented On 2 8:48AM ; [facility] Medical History Includes: Medical History addressed during this encounter Description Last Updated A colonoscopy was performed 2010 012 Last Documented On 2 9:42AM ; [facility] Last mammogram date: 06/201109/24/2011 Last Documented On 2 9:42AM ; [facility] Last pap smear date 09/24/2011 09/24/2011 Last Documented On 2 9:42AM ; [facility] Not using contraception 09/24/2011 Last Documented On 2 9:42AM ; [facility] Patient recently had a dexa scan 2010 Last Documented On 2 9:42AM ; [facility] Result: normal 09/24/2011 Last Documented On 2 9:42AM ; [facility] Result: normal 09/24/2011 Last Documented On 2 9:42AM ; [facility] section 09/23/2010 Last Documented On 2 8:48AM ; [facility] Aborta 1 09/23/2010 Last Documented On 2 8:48AM ; [facility] 3 09/23/2010 Last Documented On 2 8:48AM ; [facility] LMP: 2006 09/23/2010 Last Documented On 2 8:48AM ; [facility] Para 2 09/23/2010 Last Documented On 2 8:48AM ; [facility] 2 living children 08/12/2009 Last Documented On 2 8:48AM ; [facility] A mammogram was performed 06/28/0808/12 Last Documented On 2 8:48AM ; [facility] Family History Includes: Family History addressed during this encounter Description Last Updated Spouse name: DON 09/23/2010 Last Documented On 2 8:48AM ; [facility] No family history of diabetes mellitus 0 09/23/2010 Last Documented On 2 8:48AM ; [facility] No family history of hypercholesterolemi a 09/23/2010 Last Documented On 2 8:48AM ; [facility] No family history of hypertension 2010 Last Documented On 2 8:48AM ; [facility] No family history of malignant female br east neoplasm 09/23/2010 Last Documented On 2 8:48AM ; [facility] No family history of malignant neoplasm of the large intestine 09/23/2010 Last Documented On 2 8:48AM ; [facility] No family history of malignant neoplasm of the ovary 09/23/2010 Last Documented On 2 8:48AM ; [facility] No family history of uterine cancer 03/2011 Last Documented On 2 8:48AM ; [facility] No heart disease 09/23/2010 Last Documented On 2 8:48AM ; 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 [facility] CHAIR MENDER 02/09/20 12 8:36AM 9:44AM Normal Female Exam,Other Screening For Malignant Neoplasm of Breast Z12.39,Screening Malig. Neoplasm Rectum,Asymptomati c Postmenopausal Status Clinical Notes Includes: Clinical Notes from this encounter No Clinical Notes Recorded
--- OUTSIDE RECORDS SUMMARY | 2024-09-20 13:39 | XMS_ITS | Encounter Summary ---
Author Organization [facility] Address [address] [place] [address] Care Team Providers Care Garment Sewer Hand Name Role Phone Kennedy Perry MD Primary Care Provider [phone] Van Butt MD Unavailable Unavailable Jett Borja PA-C Unavailable [phone] Roya Fisher MD Unavailable [phone] Encounter Details Date Type Department Care Team (Late st Contact Info) Description 07/01/2021 Abstract [facility] [address] [place] [address] Amanuel Carreno MD Social History Tobacco Use Types Packs/Day [...] have Coronavirus / COVID-19? 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 encounter Functional Status [...] on filedocumented in this encounter Care Teams Garment Sewer Hand Relationship Specialty Start Date End Date Kennedy Perry MD [address] [place] [address] PCP - General INTERNAL MEDICINE 02/07/19 Van Butt MD [address] [place] [phone] EP Doll Dresser CLINICAL CARDIAC ELECTROPHYSIOLOGY 07/13/20 Jett Borja PA-C [address] [place] [phone] Physician Medical Microbiologist Electrophysiology 07/13/20 Roya Fisher MD [address] [place] [id number] Consulting Physician Electrophysiology 06/15/24 documented as of this encounter
--- OUTSIDE RECORDS SUMMARY | 2024-09-20 13:39 | XMS_ITS | Clinical Summary ---
Author Organization [facility] Address [address] [place] [address] Phone Care Team Providers Care Water Purifier Name Role Phone Unavailable Unavailable Unavailable Reason for Visit and Chief Complaint CHART UPDATE Plan of Treatment No Plan of Treatment Recorded Assessments Includes: Assessments from this encounter No Assessments Recorded Medical Equipment - Implanted Devices Includes: Current Devices No Medical Equipment Recorded Medications Includes: Medications discussed during this encounter and other current Medications Current Medications (continue as prescribed) Calcium 500 MG OR CHEW 09/23/2010 Provider: Diagnosis: Last Documented On 1 9:27AM By SUE VIRGEN MA ; [facility] Fish Oil 1000 MG OR CAPS 09/23/2010 Provider: Diagnosis: Last Documented On 1 9:28AM By SUE VIRGEN MA ; [facility] B Complex-Vitamin B12 OR TABS 09/23/2010 Provider: Diagnosis: Last Documented On 1 9:28AM By SUE VIRGEN MA ; [facility] Medications Administered Includes: Administered Medications from this encounter No Administered Medications Recorded Results Includes: Results discussed during this encounter No Results Recorded For Specified Dates History of Present Illness Includes: History of Present Illness from this encounter No History of Present Illness Recorded Social History Description Last Updated Marital history 08/12/2009 Last Documented On 9 10:03AM ; [facility] The racial background white 08/12/2009 Last Documented On 9 10:03AM ; [facility] Smoking Status Unknown Medical History Includes: Medical History addressed during this encounter Description Last Updated 2 living children 08/12/2009 Last Documented On 9 10:03AM ; [facility] A mammogram was performed 06/28/0808/12 Last Documented On 9 10:03AM ; [facility] 3 08/12/2009 Last Documented On 1 9:59AM ; [facility] Last pap smear date 06/23/2007 9 Last Documented On 1 9:59AM ; [facility] Family History Includes: Family History addressed during [...] Location Date Check-In Time Check-Out Time Diagnosis CHART UPDATE LOUIE COLMENARES M.D. [facility] WOOD SHINGLE ROOFER 9 10:02AM 11:59PM Clinical Notes Includes: Clinical Notes from this encounter No Clinical Notes Recorded
--- OUTSIDE RECORDS SUMMARY | 2024-09-20 13:39 | XMS_ITS | Referral Summary ---
Author Organization [facility] [address] Address [address] [place] [phone] Care Team Providers Care Supervisor Rides Name Role Phone Kennedy Perry MD Primary Care Provider + [phone] Allergies No known active allergies Medications montelukast (SINGULAIR) 10 mg tablet Take 1 tablet (10 mg total) by mouth daily Active atorvastatin (LIPITOR) 20 mg tablet Take 1 tablet (20 mg total) by mouth daily 1 Active venlafaxine XR (EFFEXOR-XR) 37.5 mg 24 hr capsule 4 Active metoprolol XL (TOPROL-XL) 25 mg extended release tablet Take 1 tablet (25 mg total) by mouth daily 4 Active Eliquis 5 mg tablet Take 1 tablet (5 mg total) by mouth 2 (two) times a day 4 Active zinc gluconate 50 mg tablet Take 1 tablet (50 mg total) by mouth daily Active albuterol HFA (PROVENTIL HFA,VENTOLIN HFA,PROAIR HFA) 90 mcg/actuation inhaler Inhale 2 puffs every 6 (six) hours as needed for wheezing Active therapeutic multivitamin (THERA) tabletIndications :Vitamin Deficiency Prevention Take 1 tablet by mouth daily Active turmeric root extract 500 mg capsule Take by mouth Active cyanocobalamin (Vitamin B-12) 500 mcg tabletIndications :Prevention of Vitamin B12 Deficiency Take 1 tablet (500 mcg total) by mouth daily Active Active Problems Problem Noted Date Diagnosed Date Graves disease 04/24/2024 Assessment & Plan (04/24/2024 12:26 PM CDT): Chronic, longstanding, progressively improving Reviewed and discussed patient's recent thyroid lab results TSH abnormal, slightly elevated at 4.78 Plan to stop methimazole Recheck thyroid antibodies today and further plans based on it Plan to check thyroid function test every 3 months Follow-up in 6 months Social History Tobacco Use Types Packs/Day Years Used Date Smoking Tobacco: Every Day Cigarettes Smokeless Tobacco: Never Tobacco Cessation:Ready to Q uit: Not Asked; Counseling Given: Not Answered PHQ-2 Answer Date Recorded PHQ-2 Total Score (If total score is 3 or more points, staff should administer the PHQ-9) 0 04/24/2024 Personal Safety Answer Date Recorded Getting School Help Needed Not on file 12/14 Comments Unknown Sex and Gender Information Value Date Recorded Sex Assigned at Not on file 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 Gender Identity Not on file Sexual Orientation Not on file Last Filed Vital Signs Vital Sign Reading Time Taken Comments Blood Pressure 130/76 04/24/2024 11:21 AM CDT Pulse 88 04/24/2024 11:21 AM CDT Temperature - - Respiratory Rate 16 04/24/2024 11:21 AM CDT Oxygen Saturation - - Inhaled Oxygen Concentration - - Weight 76.7 kg (169 lb) 04/24/2024 11:21 AM CDT Height 160 cm (5' 3 ) 04/24/2024 11:21 AM CDT Body Mass Index 29.94 04/24/2024 11:21 AM CDT Plan [place] [address] MEDICARE [facility] Care Teams Supervisor Rides Relationship Specialty Start Date End Date Kennedy Perry MD PCP - General Internal Medicine 01/03/19
--- OUTSIDE RECORDS SUMMARY | 2024-09-20 13:39 | XMS_ITS | Clinical Summary ---
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 Gender Identity Not on file Sexual Orientation Not on file Obstetrics History Last Filed Vital Signs Vital Sign Reading [...] 04/24/2024 11:21 AM CDT Plan of Treatment Health Maintenance Due Date Last Done Comments Breast Cancer Screening-Mammogram 1955 Colon Cancer Screening-Colonoscopy 1955 Hepatitis C Screening 1955 Osteoporosis Screening-Bone Density Scan 1955 Hepatitis B Screening 1973 Well Visit 65+ 2020 Covid-19 Vaccine (2023-2 5 season) 2024 06/01/2023, 05/14/2022, 07/15/2021, Additional history exists Influenza Vaccine (#1) 2024 , 05/14/2022, 05/15/2021, Additional history exists Pneumococcal vaccine 65+ (3 of 3 - PPSV23 or PCV20) 07/11/2024 07/11/2019, 07/03/2017 Depression Screening 04/24/2025 04/24/2024 Fall Risk Assessment 04/24/2025 04/24/2024 DTaP/Tdap/Td Vaccine (3 - Td or Tdap) 06/23/2033 06/23/2023, 07/04/2012 Zoster Vaccine Completed 02/12/2019, 12/10/[address] [place] [address] MEDICARE [facility] Care Teams Land Leasing Information Clerk Relationship Specialty Start Date End Date Kennedy Perry MD PCP - General Internal Medicine 01/03/19
== END 2024-09-20 12:39 | disposition home or self-care (01) ==
PROVIDERS: PCP Internal Medicine; Visit Provider Internal Medicine
DX: I73.9 Peripheral vascular disease, unspecified (principal)
CPT/HCPCS: 93922

== ENCOUNTER 2025-02-08 08:07 | Outpatient (CLI) | payer MEDICARE, BC, SELFPAY ==
--- NOTE | ~2025-02-08 | MM_ITS ---
EXAMINATION: MM screening josefina BI w jose HISTORY: Screening mammogram TECHNIQUE: Craniocaudal and mediolateral oblique 3-D tomosynthesis images were obtained and synthetic 2-D images were generated. CAD analysis was submitted and interpreted. COMPARISON: 02/07/2024, 02/02/2023, 08/26/2021 BREAST PARENCHYMAL COMPOSITION:Not Dense. There are scattered areas of fibroglandular density. FINDINGS: There is a 9 mm ovoid low-density mass the upper, outer left breast, which appears to be ne w from prior exam. Otherwise, the parenchymal pattern of both breasts is unchanged. No suspicious roly cification in either breast. IMPRESSION: 9 mm upper, outer left breast mass, new from prior exam. Spot compression views and ultrasound are re commended for further evaluation.. BI-RADS Category 0: Incomplete: Needs additional imaging evaluation. Reviewed, dictated and finalized at location . IMPRESSION: 9 mm upper, outer left breast mass, new from prior exam. Spot compression views and ultrasound are recommended for further evaluation.. BI-RADS Category 0: Incomplete: Needs additional imaging evaluation.
--- NOTE | ~2025-02-08 | CT_ITS ---
CT Scan of the Chest without Contrast: Clinical Indication: Lung cancer screening, nicotine dependence Technique: Contiguous sections were acquired throughout the chest without intravenous contrast. Dose reduction technique was used on this scan by utilizing automated exposure control and iterative recon struction technique. The dose-length product (DLP) was 120.15 mGy-cm. COMPARISON: 11/16/2023 Findings: There is no evidence of any significant mediastinal, hilar or axillary lymphadenopathy. There are ath erosclerotic calcifications of the aorta and coronary arteries. There is no evidence of pleural or pericardial effusion. Numerous calcified granulomas are present. No definite noncalcified pulmonary nodule seen. Images through the upper abdomen reveal no abnormalities. Impression: Lung RADS 2: Benign appearance. 12 month follow-up screening CT advised. Reviewed, dictated and finalized at [facility]. Impression: Lung RADS 2: Benign appearance. 12 month follow-up screening CT advised.
== END 2025-02-08 08:08 | disposition home or self-care (01) ==
LOC: CHSIMG 08:08
PROVIDERS: PCP Internal Medicine; Visit Provider Internal Medicine
DX: Z12.2 Encounter for screening for malignant neoplasm of respiratory organs (principal); Z87.891 Personal history of nicotine dependence; R92.8 Other abnormal and inconclusive findings on diagnostic imaging of breast; Z12.31 Encounter for screening mammogram for malignant neoplasm of breast
CPT/HCPCS: 71271; 77063; 77067

== ENCOUNTER 2025-02-13 09:21 | Outpatient (CLI) | payer MEDICARE, BC, SELFPAY ==
--- NOTE | ~2025-02-13 | MMUS_ITS ---
EXAMINATION: MM diagnostic josefina LT w jose, US breast LT limited HISTORY: Upper, outer left breast mass TECHNIQUE: Additional 3-D tomosynthesis images of the left breast were performed and synthetic 2-D im ages were generated. CAD analysis was submitted and interpreted. High resolution limited left breast ultrasound was performed. COMPARISON: 02/08/2025, 02/07/2024, 01/25/2023 BREAST PARENCHYMAL COMPOSITION:Not Dense. There are scattered areas of fibroglandular density. FINDINGS: MAMMOGRAPHIC FINDINGS: Spot compression views confirm a circumscribed ovoid low-density 9 mm mass at the upper, outer left b reast. No architectural distortion are evident. No suspicious microcalcification. ULTRASOUND: At the 2:00 position left breast, 8 cm from nipple, there is a 8 mm simple parallel anechoic cyst. IMPRESSION: No evidence for malignancy. 8 mm simple cyst at the upper, outer left breast. BI-RADS Category 2: Benign finding(s). Reviewed, dictated and finalized at location . IMPRESSION: No evidence for malignancy. 8 mm simple cyst at the upper, outer left breast. BI-RADS Category 2: Benign finding(s).
--- OUTSIDE RECORDS SUMMARY | 2025-02-13 09:29 | XMS_ITS | Data Portability ---
Author Organization [place] [facility] [email or web address], Main Office Address [address] [place] [address] Assessment No assessment recorded. Plan of Treatment Reminders Order Date Submit Date Provider Last Modified By Organization Details Last Modified Time Details Appointments None recorded. Lab None recorded. Referral None recorded. Procedures None recorded. Surgeries None recorded. Imaging None recorded. Medication Orders methimazole 5 mg tablet 2022 023 [facility], [address] [place], [address], 10:13:40 Patient TargetsNo targets recorded. Patient InstructionsNo instructions recorded. Reason for Referral None Reported. Results Created Date Observation Date Name Description Value Unit Range Abnormal Flag Note LastModifiedBy Organization Detail LastModifiedTime 05/27/2005/31/2021 T3, FREE T3, free 3.7 pg/mL 2.3-4. 2 normal Not Available [facility] [address] [address] [place], [address], 05/31/2021 19:30:22 05/27/2005/31/2021 T3, FREE copy(ies) sent to: [facility] [address] [place] [address] Not Available [facility] [address] [address] [place], [address], 05/31/2021 19:30:22 05/27/20 21 05/31/2021 TSH TSH 1.36 mIU/L 0.40-4 .50 normal Not Available [address] [address] [place], [address], 05/31/2021 19:30:22 05/27/2005/31/2021 TSH copy(ies) sent to: [facility] [address] [place] [address] Not Available [facility] [address] [address] [place], [address], 05/31/2021 19:30:22 05/27/2005/31/2021 T4, FREE T4, free 1.2 NG/dL 0.8-1. 8 normal Not Available [address], [address], 05/31/2021 19:30:21 05/27/20 21 05/31/2021 T4, FREE copy(ies) sent to: [facility] [address] [place] [address] Not Available [address] [address] [place], [address], 05/31/2021 19:30:21 05/27/2005/31/2021 TSI (THYR OID STIMU LATIN G IMMUN OGLOB ULIN) tsi 196 %_bas cooper <140 high Thyro id stimu latin g immun oglob ulins (TSI) can engag e the TSH administrative assistant receptionist tors resul ting in hyper thyro idism in [facility] disea se patie nts. TSI level s can be usefu l in monit oring the clini roly outco me of [facility] disea se as well as asses sing the poten tial for hyper thyro idism from mater nal-f etal trans jackson. TSI resul ts great er than or equal to (>=) 140% of the Refer ence Contr ol are consi dered posit henrique. NOTE: A serum TSH level great er than 350 micro -Inte rnati onal Units /mL can inter fere with the TSI bioas say and poten tiall y give false posit henrique resul ts. Patie nts who are pregn ant and are suspe cted of havin g hyper thyro idism shoul d have both a TSI and human Chori onic Gonad otrop in (hCG) tests measu red. A serum hCG level great er than 40,62 5 mIU/m L can inter fere with the TSI bioas say and may give false negat henrique resul ts. In these patie nts it is recom ilia d that a secon d TSI is obtai jos when the hCG iban ntrat ion falls below 40,62 5 mIU/m L (usua lly after appro ximat souleymane 20-we eks gesta tion) . Not Available [facility] [address], [address], 05/31/2021 19:30:21 05/27/20 21 05/31/2021 TSI (THYR OID STIMU LATIN G IMMUN OGLOB ULIN) copy(ies) sent to: [facility] [address] [place] [address] Not Available [facility] [address], [address], 05/31/2021 19:30:21 05/27/20 21 05/31/2021 COMPR EHENS HENRIQUE METAB OLIC PANEL glucose 98 mg/dL 65-99 normal Fasti ng refer ence inter nish Not Available [facility] [address], [address], 05/31/2021 19:30:20 05/27/20 21 05/31/2021 COMPR EHENS HENRIQUE METAB OLIC PANEL urea nitrogen (BUN) 11 mg/dL 7-25 normal Not Available [facility] [address], [address], 05/31/2021 19:30:20 05/27/20 21 05/31/2021 COMPR EHENS HENRIQUE METAB OLIC PANEL creatinine 0.58 mg/dL 0.50-0 .99 normal For patie nts >49 years of age, the refer ence limit for Creat inine is appro xifelishat souleymane 13% highe r for peopl e ident ified as Afric an-Am jaime n. Not Available [address] [address] [place], [address], 05/31/2021 19:30:20 05/27/20 21 05/31/2021 COMPR EHENS HENRIQUE METAB OLIC PANEL eGFR non-afr. iraqi 97 mL/mi n/1.7 3m2 > or = 60 normal Not Available [address] [address] [place], [address], 05/31/2021 19:30:20 05/27/20 21 05/31/2021 COMPR EHENS HENRIQUE METAB OLIC PANEL eGFR 112 mL/mi n/1.7 3m2 > or = 60 normal Not Available [address], [address], 05/31/2021 19:30:20 05/27/20 21 05/31/2021 COMPR EHENS HENRIQUE METAB OLIC PANEL BUN/creatini ne ratio not applic able (calc ) 6-22 Not Available [address], [address], 05/31/2021 19:30:20 05/27/20 21 05/31/2021 COMPR EHENS HENRIQUE METAB OLIC PANEL sodium 141 mmol/ L 135-14 6 normal Not Available [address], [address], 05/31/2021 19:30:20 05/27/20 21 05/31/2021 COMPR EHENS HENRIQUE METAB OLIC PANEL potassium 4.5 mmol/ L 3.5-5. 3 normal Not Available [address], [address], 05/31/2021 19:30:20 05/27/20 21 05/31/2021 COMPR EHENS HENRIQUE METAB OLIC PANEL chloride 106 mmol/ L 98-110 normal Not Available [address], [address], 05/31/2021 19:30:20 05/27/20 21 05/31/2021 COMPR EHENS HENRIQUE METAB OLIC PANEL carbon dioxide 25 mmol/ L 20-32 normal Not Available [address], [address], 05/31/2021 19:30:20 05/27/20 21 05/31/2021 COMPR EHENS HENRIQUE METAB OLIC PANEL calcium 9.3 mg/dL 8.6-10 .4 normal Not Available [address], [address], 05/31/2021 19:30:20 05/27/20 21 05/31/2021 COMPR EHENS HENRIQUE METAB OLIC PANEL protein, total 6.8 g/dL 6.1-8. 1 normal Not Available [address], [address], 05/31/2021 19:30:20 05/27/20 21 05/31/2021 COMPR EHENS HENRIQUE METAB OLIC PANEL albumin 4.1 g/dL 3.6-5. 1 normal Not Available [address], [address], 05/31/2021 19:30:20 05/27/20 21 05/31/2021 COMPR EHENS HENRIQUE METAB OLIC PANEL globulin 2.7 g/dL_ (calc ) 1.9-3. 7 normal Not Available [address], [address], 05/31/2021 19:30:20 05/27/20 21 05/31/2021 COMPR EHENS HENRIQUE METAB OLIC PANEL albumin/glob ulin ratio 1.5 (calc ) 1.0-2. 5 normal Not Available [address], [address], 05/31/2021 19:30:20 05/27/20 21 05/31/2021 COMPR EHENS HENRIQUE METAB OLIC PANEL bilirubin, total 0.4 mg/dL 0.2-1. 2 normal Not Available [address], [address], 05/31/2021 19:30:20 05/27/20 21 05/31/2021 COMPR EHENS HENRIQUE METAB OLIC PANEL alkaline phosphatase 77 U/L 37-153 normal Not Available [address] [address] [place], [address], 05/31/2021 19:30:20 05/27/20 21 05/31/2021 COMPR EHENS HENRIQUE METAB OLIC PANEL AST 18 U/L 10-35 normal Not Available [address], [address], 05/31/2021 19:30:20 05/27/20 21 05/31/2021 COMPR EHENS HENRIQUE METAB OLIC PANEL ALT 15 U/L 6-29 normal Not Available [address], [address], 05/31/2021 19:30:20 05/27/20 21 05/31/2021 COMPR EHENS HENRIQUE METAB OLIC PANEL copy(ies) sent to: [facility] [address] [place] [address] Not Available [address] [place], [address], 05/31/2021 19:30:20 12/03/19 22 12/05/2021 T3, FREE T3, free 4.1 pg/mL 2.3-4. 2 normal Not Available [address] [place], [address], 12/05/2021 20:25:22 12/03/19 22 12/05/2021 T3, FREE copy(ies) sent to: [facility] [address] [place] [address] Not Available [address], [address], 12/05/2021 20:25:22 12/03/19 22 12/05/2021 TSH TSH 1.23 mIU/L 0.40-4 .50 normal Not Available [address], [address], 12/05/2021 20:25:21 12/03/19 22 12/05/2021 TSH copy(ies) sent to: [facility] [address] [place] [address] Not Available [address], [address], 12/05/2021 20:25:21 12/03/19 22 12/05/2021 T4, FREE T4, free 1.3 NG/dL 0.8-1. 8 normal Not Available [address], [address], 12/05/2021 20:25:21 12/03/19 22 12/05/2021 T4, FREE copy(ies) sent to: [facility] [address] [place] [address] Not Available [address], [address], 12/05/2021 20:25:21 12/03/19 22 12/05/2021 THYRO ID PEROX IDASE ANTIB ODIES thyroid peroxidase antibodies 1 IU/mL <9 normal Not Available [address], [address], 12/05/2021 20:25:20 12/03/19 22 12/05/2021 THYRO ID PEROX IDASE ANTIB ODIES copy(ies) sent to: [facility] [address] [place] [address] Not Available [address], [address], 12/05/2021 20:25:20 12/03/19 22 12/05/2021 CBC (INCL UDES DIFF/ PLT) copy(ies) sent to: [facility] [address] [place] [address] Not Available [facility] [address], [address], 12/05/2021 20:25:20 12/03/19 22 12/05/2021 CBC (INCL UDES DIFF/ PLT) white blood cell count 8.6 thous and/u L 3.8-10 .8 normal Not Available [address], [address], 12/05/2021 20:25:20 12/03/19 22 12/05/2021 CBC (INCL UDES DIFF/ PLT) red blood cell count 5.19 daniel on/uL 3.80-5 .10 high Not Available [address], [address], 12/05/2021 20:25:20 12/03/19 22 12/05/2021 CBC (INCL UDES DIFF/ PLT) hemoglobin 15.0 g/dL 11.7-1 5.5 normal Not Available [address], [address], 12/05/2021 20:25:20 12/03/19 22 12/05/2021 CBC (INCL UDES DIFF/ PLT) hematocrit 44.8 % 35.0-4 5.0 normal Not Available [address], [address], 12/05/2021 20:25:20 12/03/19 22 12/05/2021 CBC (INCL UDES DIFF/ PLT) MCV 86.3 fL 80.0-1 00.0 normal Not Available [address], [address], 12/05/2021 20:25:20 12/03/19 22 12/05/2021 CBC (INCL UDES DIFF/ PLT) MCH 28.9 pg 27.0-3 3.0 normal Not Available [address], [address], 12/05/2021 20:25:20 12/03/19 22 12/05/2021 CBC (INCL UDES DIFF/ PLT) MCHC 33.5 g/dL 32.0-3 6.0 normal Not Available [address], [address], 12/05/2021 20:25:20 12/03/19 22 12/05/2021 CBC (INCL UDES DIFF/ PLT) RDW 13.2 % 11.0-1 5.0 normal Not Available [address], [address], 12/05/2021 20:25:20 12/03/19 22 12/05/2021 CBC (INCL UDES DIFF/ PLT) platelet count 280 thous and/u L 140-40 0 normal Not Available [address], [address], 12/05/2021 20:25:20 12/03/19 22 12/05/2021 CBC (INCL UDES DIFF/ PLT) MPV 11.2 fL 7.5-12 .5 normal Not Available [address], [address], 12/05/2021 20:25:20 12/03/19 22 12/05/2021 CBC (INCL UDES DIFF/ PLT) absolute neutrophils 5573 cells /uL 1500-7 800 normal Not Available [address], [address], 12/05/2021 20:25:20 12/03/19 22 12/05/2021 CBC (INCL UDES DIFF/ PLT) absolute lymphocytes 2219 cells /uL 850-39 00 normal Not Available [address], [address], 12/05/2021 20:25:20 12/03/19 22 12/05/2021 CBC (INCL UDES DIFF/ PLT) absolute monocytes 499 cells /uL 200-95 0 normal Not Available [address], [address], 12/05/2021 20:25:20 12/03/19 22 12/05/2021 CBC (INCL UDES DIFF/ PLT) absolute eosinophils 232 cells /uL 15-500 normal Not Available [address], [address], 12/05/2021 20:25:20 12/03/19 22 12/05/2021 CBC (INCL UDES DIFF/ PLT) absolute basophils 77 cells /uL 0-200 normal Not Available [address], [address], 12/05/2021 20:25:20 12/03/19 22 12/05/2021 CBC (INCL UDES DIFF/ PLT) neutrophils 64.8 % normal Not Available [address], [address], 12/05/2021 20:25:20 12/03/19 22 12/05/2021 CBC (INCL UDES DIFF/ PLT) lymphocytes 25.8 % normal Not Available [address], [address], 12/05/2021 20:25:20 12/03/19 22 12/05/2021 CBC (INCL UDES DIFF/ PLT) monocytes 5.8 % normal Not Available [facility] [address] [address] [place], [address], 12/05/2021 20:25:20 12/03/19 22 12/05/2021 CBC (INCL UDES DIFF/ PLT) eosinophils 2.7 % normal Not Available [facility] [address] [place], [address], 12/05/2021 20:25:20 12/03/19 22 12/05/2021 CBC (INCL UDES DIFF/ PLT) basophils 0.9 % normal Not Available [facility] [address] [place], [address], 12/05/2021 20:25:20 12/03/19 22 12/05/2021 TSI (THYR OID STIMU LATIN G IMMUN OGLOB ULIN) tsi 144 %_bas cooper <140 high Thyro id stimu latin g immun oglob ulins (TSI) can engag e the TSH administrative assistant receptionist tors resul ting in hyper thyro idism in [facility] dise se patie nts. TSI level s can be usefu l in monit oring the [facility]i [facility] as well as asses sing the poten tial for hyper thyro idism from mater nal-f etal trans jackson. TSI resul ts great er than or equal to (>=) 140% of the Refer ence Contr ol are consi dered posit henrique. NOTE: A serum TSH level great er than 350 micro -Inte rnati onal Units /mL can inter fere with the TSI bioas say and potluis angel tiacolton y give false posit henrique resul ts. Patie nts who are pregn ant and are suspe cted of havin g hyper thyro idism nir d have both TSI and human Chori onic Gonad otrop in (hCG) tests measu red. A serum hCG level great er than 40,62 5 mIU/m L can inter fere with the TSI bioas say and may give false negat henrique resul ts. In these patie nts it is recom ilia d that a secon d TSI be obtai jos when the hCG iban ntrat ion falls below 40,62 5 mIU/m L (usua lly after appro ximat souleymane 20-we eks gesta tion) . The j[place] tical perfo rmanc e rosanne cteri stics of this assay have been deter mined by [facility] Bernardo Sigalai aline Neville Cabrera Trewhit alexa . The modif icati ons have not been clear ed or appro tariq by the FDA. This assay has been valid ated pursu ant to the CLIA regul ation s and is used for clini roly purpo ses. Not Available [facility] [address] [place], [address], 12/05/2021 20:25:20 12/03/19 22 12/05/2021 TSI (THYR OID STIMU LATIN G IMMUN OGLOB ULIN) copy(ies) sent to: [facility] [address] [place] [address] Not Available [facility] [address] [address] [place], [address], 12/05/2021 20:25:20 12/03/19 22 12/05/2021 COMPR EHENS HENRIQUE METAB OLIC PANEL glucose 97 mg/dL 65-99 normal Fasti ng refer ence inter nish Not Available [facility] [address] [place], [address], 12/05/2021 20:25:19 12/03/19 22 12/05/2021 COMPR EHENS HENRIQUE METAB OLIC PANEL urea nitrogen (BUN) 10 mg/dL 7-25 normal Not Available [facility] [address] [place], [address], 12/05/2021 20:25:19 12/03/19 22 12/05/2021 COMPR EHENS HENRIQUE METAB OLIC PANEL creatinine 0.56 mg/dL 0.50-0 .99 normal For patie nts >49 years of age, the refer ence limit for Creat inine is appro ximat souleymane 13% highe r for peopl e ident ified as Afric an-Am jaime n. Not Available [address] [address] [place], [address], 12/05/2021 20:25:19 12/03/19 22 12/05/2021 COMPR EHENS HENRIQUE METAB OLIC PANEL eGFR non-afr. iraqi 97 mL/mi n/1.7 3m2 > or = 60 normal Not Available [address], [address], 12/05/2021 20:25:19 12/03/19 22 12/05/2021 COMPR EHENS HENRIQUE METAB OLIC PANEL eGFR 113 mL/mi n/1.7 3m2 > or = 60 normal Not Available [address], [address], 12/05/2021 20:25:19 12/03/19 22 12/05/2021 COMPR EHENS HENRIQUE METAB OLIC PANEL BUN/creatini ne ratio not applic able (calc ) 6-22 Not Available [address], [address], 12/05/2021 20:25:19 12/03/19 22 12/05/2021 COMPR EHENS HENRIQUE METAB OLIC PANEL sodium 140 mmol/ L 135-14 6 normal Not Available [address], [address], 12/05/2021 20:25:19 12/03/19 22 12/05/2021 COMPR EHENS HENRIQUE METAB OLIC PANEL potassium 4.5 mmol/ L 3.5-5. 3 normal Not Available [address], [address], 12/05/2021 20:25:19 12/03/19 22 12/05/2021 COMPR EHENS HENRIQUE METAB OLIC PANEL chloride 106 mmol/ L 98-110 normal Not Available [address], [address], 12/05/2021 20:25:19 12/03/19 22 12/05/2021 COMPR EHENS HENRIQUE METAB OLIC PANEL carbon dioxide 26 mmol/ L 20-32 normal Not Available [address], [address], 12/05/2021 20:25:19 12/03/19 22 12/05/2021 COMPR EHENS HENRIQUE METAB OLIC PANEL calcium 9.5 mg/dL 8.6-10 .4 normal Not Available [address], [address], 12/05/2021 20:25:19 12/03/19 22 12/05/2021 COMPR EHENS HENRIQUE METAB OLIC PANEL protein, total 7.0 g/dL 6.1-8. 1 normal Not Available [address], [address], 12/05/2021 20:25:19 12/03/19 22 12/05/2021 COMPR EHENS HENRIQUE METAB OLIC PANEL albumin 4.3 g/dL 3.6-5. 1 normal Not Available [address], [address], 12/05/2021 20:25:19 12/03/19 22 12/05/2021 COMPR EHENS HENRIQUE METAB OLIC PANEL globulin 2.7 g/dL_ (calc ) 1.9-3. 7 normal Not Available [address], [address], 12/05/2021 20:25:19 12/03/19 22 12/05/2021 COMPR EHENS HENRIQUE METAB OLIC PANEL albumin/glob ulin ratio 1.6 (calc ) 1.0-2. 5 normal Not Available [address], [address], 12/05/2021 20:25:19 12/03/19 22 12/05/2021 COMPR EHENS HENRIQUE METAB OLIC PANEL bilirubin, total 0.4 mg/dL 0.2-1. 2 normal Not Available [address], [address], 12/05/2021 20:25:19 12/03/19 22 12/05/2021 COMPR EHENS HENRIQUE METAB OLIC PANEL alkaline phosphatase 97 U/L 37-153 normal Not Available [address], [address], 12/05/2021 20:25:19 12/03/19 22 12/05/2021 COMPR EHENS HENRIQUE METAB OLIC PANEL AST 18 U/L 10-35 normal Not Available [address], [address], 12/05/2021 20:25:19 12/03/19 22 12/05/2021 COMPR EHENS HENRIQUE METAB OLIC PANEL ALT 20 U/L 6-29 normal Not Available [address], [address], 12/05/2021 20:25:19 12/03/19 22 12/05/2021 COMPR EHENS HENRIQUE METAB OLIC PANEL copy(ies) sent to: [facility] [address] [place] [address] Not Available [address], [address], 12/05/2021 20:25:19 05/05/20 22 05/16/2022 T3, FREE T3, free 3.8 pg/mL 2.3-4. 2 normal Not Available [address], [address], 05/16/2022 20:51:20 05/05/20 22 05/16/2022 T3, FREE copy(ies) sent to: [facility] [address] [place] [address] Not Available [address], [address], 05/16/2022 20:51:20 05/05/20 22 05/16/2022 TSH TSH 2.21 mIU/L 0.40-4 .50 normal Not Available [address], [address], 05/16/2022 20:51:20 05/05/20 22 05/16/2022 TSH copy(ies) sent to: [facility] [address] [place] [address] Not Available [address], [address], 05/16/2022 20:51:20 05/05/20 22 05/16/2022 T4, FREE T4, free 1.2 NG/dL 0.8-1. 8 normal Not Available [address], [address], 05/16/2022 20:51:20 05/05/20 22 05/16/2022 T4, FREE copy(ies) sent to: [facility] [address] [place] [address] Not Available [address], [address], 05/16/2022 20:51:20 05/05/20 22 05/16/2022 THYRO ID PEROX IDASE ANTIB ODIES thyroid peroxidase antibodies 1 IU/mL <9 normal Not Available [address], [address], 05/16/2022 20:51:19 05/05/20 22 05/16/2022 THYRO ID PEROX IDASE ANTIB ODIES copy(ies) sent to: [facility] [address] [place] [address] Not Available [address], [address], 05/16/2022 20:51:19 05/05/20 22 05/16/2022 CBC (INCL UDES DIFF/ PLT) white blood cell count 9.0 thous and/u L 3.8-10 .8 normal Not Available [address], [address], 05/16/2022 20:51:19 05/05/20 22 05/16/2022 CBC (INCL UDES DIFF/ PLT) red blood cell count 5.38 daniel on/uL 3.80-5 .10 high Not Available [address], [address], 05/16/2022 20:51:19 05/05/20 22 05/16/2022 CBC (INCL UDES DIFF/ PLT) hemoglobin 15.0 g/dL 11.7-1 5.5 normal Not Available [address], [address], 05/16/2022 20:51:19 05/05/20 22 05/16/2022 CBC (INCL UDES DIFF/ PLT) hematocrit 46.6 % 35.0-4 5.0 high Not Available [address], [address], 05/16/2022 20:51:19 05/05/20 22 05/16/2022 CBC (INCL UDES DIFF/ PLT) MCV 86.6 fL 80.0-1 00.0 normal Not Available [address], [address], 05/16/2022 20:51:19 05/05/20 22 05/16/2022 CBC (INCL UDES DIFF/ PLT) MCH 27.9 pg 27.0-3 3.0 normal Not Available [address], [address], 05/16/2022 20:51:19 05/05/20 22 05/16/2022 CBC (INCL UDES DIFF/ PLT) MCHC 32.2 g/dL 32.0-3 6.0 normal Not Available [address], [address], 05/16/2022 20:51:19 05/05/20 22 05/16/2022 CBC (INCL UDES DIFF/ PLT) RDW 13.2 % 11.0-1 5.0 normal Not Available [address], [address], 05/16/2022 20:51:19 05/05/20 22 05/16/2022 CBC (INCL UDES DIFF/ PLT) platelet count 265 thous and/u L 140-40 0 normal Not Available [address], [address], 05/16/2022 20:51:19 05/05/20 22 05/16/2022 CBC (INCL UDES DIFF/ PLT) MPV 11.2 fL 7.5-12 .5 normal Not Available [address], [address], 05/16/2022 20:51:19 05/05/20 22 05/16/2022 CBC (INCL UDES DIFF/ PLT) absolute neutrophils 5697 cells /uL 1500-7 800 normal Not Available [address], [address], 05/16/2022 20:51:19 05/05/20 22 05/16/2022 CBC (INCL UDES DIFF/ PLT) absolute lymphocytes 2358 cells /uL 850-39 00 normal Not Available [address], [address], 05/16/2022 20:51:19 05/05/20 22 05/16/2022 CBC (INCL UDES DIFF/ PLT) absolute monocytes 594 cells /uL 200-95 0 normal Not Available [address], [address], 05/16/2022 20:51:19 05/05/20 22 05/16/2022 CBC (INCL UDES DIFF/ PLT) absolute eosinophils 261 cells /uL 15-500 normal Not Available [address], [address], 05/16/2022 20:51:19 05/05/20 22 05/16/2022 CBC (INCL UDES DIFF/ PLT) absolute basophils 90 cells /uL 0-200 normal Not Available [address], [address], 05/16/2022 20:51:19 05/05/20 22 05/16/2022 CBC (INCL UDES DIFF/ PLT) neutrophils 63.3 % normal Not Available [address], [address], 05/16/2022 20:51:19 05/05/20 22 05/16/2022 CBC (INCL UDES DIFF/ PLT) lymphocytes 26.2 % normal Not Available [address], [address], 05/16/2022 20:51:19 05/05/20 22 05/16/2022 CBC (INCL UDES DIFF/ PLT) monocytes 6.6 % normal Not Available [address], [address], 05/16/2022 20:51:19 05/05/20 22 05/16/2022 CBC (INCL UDES DIFF/ PLT) eosinophils 2.9 % normal Not Available [facility] [address], [address], 05/16/2022 20:51:19 05/05/20 22 05/16/2022 CBC (INCL UDES DIFF/ PLT) basophils 1.0 % normal Not Available [facility] [address] [place], [address], 05/16/2022 20:51:19 05/05/20 22 05/16/2022 CBC (INCL UDES DIFF/ PLT) copy(ies) sent to: [facility] [address] [place] [address] Not Available [facility] [address] [address] , [place], [address], 05/16/2022 20:51:19 05/05/20 22 05/16/2022 TSI (THYR OID STIMU LATIN G IMMUN OGLOB ULIN) tsi 166 %_bas cooper <140 high Thyro id stimu latin g immun oglob ulins (TSI) can engag e the TSH administrative assistant receptionist tors resul ting in hyper thyro idism in [facility]' disea se patie nts. TSI level s can be usefu l in monit oring the clini roly outco me of [facility] s' disea se as well as asses sing the poten tial for hyper thyro idism from mater nal-f etal trans jackson. TSI resul ts great er than or equal to (>=) 140% of the Refer ence Contr ol are consi dered posit henrique. NOTE: A serum TSH level great er than 350 micro -Inte rnati onal Units /mL can inter fere with the TSI bioas say and potluis angel rainey y give false posit henrique resul ts. Patie nts who are pregn ant and are suspe cted of havin g hyper thyro idism shoul d have both TSI and human Chori onic Gonad otrop in (hCG) tests measu red. A serum hCG level great er than 40,62 5 mIU/m L can inter fere with the TSI bioas say and may give false negat henrique resul ts. In these patie nts it is recom ilia d that a secon d TSI be obtai jos when the hCG iban ntrat ion falls below 40,62 5 mIU/m L (usua lly after appro ximat souleymane 20-we eks gesta tion) . The jessee tical perfo rmanc e rosanne cteri stics of this assay have been deter mined by [facility] laura Hernández . The modif icati ons have not been clear ed or appro tariq by the FDA. This assay has been valid ated pursu ant to the CLIA regul ation s and is used for clini roly purpo ses. Not Available [facility] [address] [address] [place], [address], 05/16/2022 20:51:18 05/05/20 22 05/16/2022 TSI (THYR OID STIMU LATIN G IMMUN OGLOB ULIN) copy(ies) sent to: [facility] [address] [place] [phone] Not Available [facility] [address], [address], 05/16/2022 20:51:18 05/05/20 22 05/16/2022 COMPR EHENS HENRIQUE METAB OLIC PANEL glucose 103 mg/dL 65-99 high Fasti ng refer ence inter nish For someo ne witho ut known diabe jeanna, a gluco se value betwe en 100 and 125 mg/dL is consi stent with predi abete s and shoul d be confi rmed with a follo w-up test. Not Available [facility] [address] [address] [place], [address], 05/16/2022 20:51:18 05/05/20 22 05/16/2022 COMPR EHENS HENRIQUE METAB OLIC PANEL urea nitrogen (BUN) 17 mg/dL 7-25 normal Not Available [facility] [address] [place], [address], 05/16/2022 20:51:18 05/05/20 22 05/16/2022 COMPR EHENS HENRIQUE METAB OLIC PANEL creatinine 0.60 mg/dL 0.50-1 .05 normal Not Available [address], [address], 05/16/2022 20:51:18 05/05/20 22 05/16/2022 COMPR EHENS HENRIQUE METAB OLIC PANEL eGFR 99 mL/mi n/1.7 3m2 > or = 60 normal The eGFR is based on the CKD-E PI 2020 equat ion. To calcu late the new eGFR from a previ ous Creat inine or Cysta tin C resul t, go to https ://ww w.kid alexia.o rg/pr ofess janakal s/ kdoqi /gfr% 5Fcal culat or Not Available [address], [address], 05/16/2022 20:51:18 05/05/20 22 05/16/2022 COMPR EHENS HENRIQUE METAB OLIC PANEL BUN/creatini ne ratio not applic able (calc ) 6-22 Not Available [address], [address], 05/16/2022 20:51:18 05/05/20 22 05/16/2022 COMPR EHENS HENRIQUE METAB OLIC PANEL sodium 138 mmol/ L 135-14 6 normal Not Available [address], [address], 05/16/2022 20:51:18 05/05/20 22 05/16/2022 COMPR EHENS HENRIQUE METAB OLIC PANEL potassium 4.3 mmol/ L 3.5-5. 3 normal Not Available [employer] [address], [address], 05/16/2022 20:51:18 05/05/20 22 05/16/2022 COMPR EHENS HENRIQUE METAB OLIC PANEL chloride 103 mmol/ L 98-110 normal Not Available [facility] [address], [address], 05/16/2022 20:51:18 05/05/20 22 05/16/2022 COMPR EHENS HENRIQUE METAB OLIC PANEL carbon dioxide 26 mmol/ L 20-32 normal Not Available [address], [address], 05/16/2022 20:51:18 05/05/20 22 05/16/2022 COMPR EHENS HENRIQUE METAB OLIC PANEL calcium 9.3 mg/dL 8.6-10 .4 normal Not Available [address], [address], 05/16/2022 20:51:18 05/05/20 22 05/16/2022 COMPR EHENS HENRIQUE METAB OLIC PANEL protein, total 6.8 g/dL 6.1-8. 1 normal Not Available [address], [address], 05/16/2022 20:51:18 05/05/20 22 05/16/2022 COMPR EHENS HENRIQUE METAB OLIC PANEL albumin 4.2 g/dL 3.6-5. 1 normal Not Available [address], [address], 05/16/2022 20:51:18 05/05/20 22 05/16/2022 COMPR EHENS HENRIQUE METAB OLIC PANEL globulin 2.6 g/dL_ (calc ) 1.9-3. 7 normal Not Available [address], [address], 05/16/2022 20:51:18 05/05/20 22 05/16/2022 COMPR EHENS HENRIQUE METAB OLIC PANEL albumin/glob ulin ratio 1.6 (calc ) 1.0-2. 5 normal Not Available [address], [address], 05/16/2022 20:51:18 05/05/20 22 05/16/2022 COMPR EHENS HENRIQUE METAB OLIC PANEL bilirubin, total 0.4 mg/dL 0.2-1. 2 normal Not Available [address] [address] [place], [address], 05/16/2022 20:51:18 05/05/20 22 05/16/2022 COMPR EHENS HENRIQUE METAB OLIC PANEL alkaline phosphatase 98 U/L 37-153 normal Not Available [facility] [address] [address] [place], [address], 05/16/2022 20:51:18 05/05/20 22 05/16/2022 COMPR EHENS HENRIQUE METAB OLIC PANEL AST 17 U/L 10-35 normal Not Available [address], [address], 05/16/2022 20:51:18 05/05/20 22 05/16/2022 COMPR EHENS HENRIQUE METAB OLIC PANEL ALT 17 U/L 6-29 normal Not Available [address], [address], 05/16/2022 20:51:18 05/05/20 22 05/16/2022 COMPR EHENS HENRIQUE METAB OLIC PANEL copy(ies) sent to: [facility] [address] [place] [address] Not Available [address], [address], 05/16/2022 20:51:18 02/24/20 23 02/24/2023 COMPR EHENS HENRIQUE METAB OLIC PANEL glucose 108 mg/dL 65-99 high Fasti ng refer ence inter nish For someo ne witho ut known diabe jeanna, a gluco se value betwe en 100 and 125 mg/dL is consi stent with predi abete s and shoul d be confi rmed with a follo w-up test. Not Available [facility] [address] [address] [place], [address], 02/24/2023 08:21:16 02/24/20 23 02/24/2023 COMPR EHENS HENRIQUE METAB OLIC PANEL urea nitrogen (BUN) 14 mg/dL 7-25 normal Not Available [address], [address], 02/24/2023 08:21:16 02/24/20 23 02/24/2023 COMPR EHENS HENRIQUE METAB OLIC PANEL creatinine 0.59 mg/dL 0.50-1 .05 normal Not Available [address], [address], 02/24/2023 08:21:16 02/24/20 23 02/24/2023 COMPR EHENS HENRIQUE METAB OLIC PANEL eGFR 99 mL/mi n/1.7 3m2 > or = 60 normal The eGFR is based on the CKD-E PI 2020 equat ion. To calcu late the new eGFR from a previ ous Creat inine or Cysta tin C resul t, go to https ://nickolas barros.livier hale.paige villanueva/izabel warren s/ kdoqi /gfr% 5Fcal culat or Not Available [address], [address], 02/24/2023 08:21:16 02/24/20 23 02/24/2023 COMPR EHENS HENRIQUE METAB OLIC PANEL BUN/creatini ne ratio NOT APPLIC ABLE (calc ) 6-22 Not Available [address], [address], 02/24/2023 08:21:16 02/24/20 23 02/24/2023 COMPR EHENS HENRIQUE METAB OLIC PANEL sodium 139 mmol/ L 135-14 6 normal Not Available [address], [address], 02/24/2023 08:21:16 02/24/20 23 02/24/2023 COMPR EHENS HENRIQUE METAB OLIC PANEL potassium 4.2 mmol/ L 3.5-5. 3 normal Not Available [address], [address], 02/24/2023 08:21:16 02/24/20 23 02/24/2023 COMPR EHENS HENRIQUE METAB OLIC PANEL chloride 102 mmol/ L 98-110 normal Not Available [address], [address], 02/24/2023 08:21:16 02/24/20 23 02/24/2023 COMPR EHENS HENRIQUE METAB OLIC PANEL carbon dioxide 27 mmol/ L 20-32 normal Not Available [address], [address], 02/24/2023 08:21:16 02/24/20 23 02/24/2023 COMPR EHENS HENRIQUE METAB OLIC PANEL calcium 9.8 mg/dL 8.6-10 .4 normal Not Available [address], [address], 02/24/2023 08:21:16 02/24/20 23 02/24/2023 COMPR EHENS HERNIQUE METAB OLIC PANEL protein, total 6.7 g/dL 6.1-8. 1 normal Not Available [address], [address], 02/24/2023 08:21:16 02/24/20 23 02/24/2023 COMPR EHENS HENRIQUE METAB OLIC PANEL albumin 4.2 g/dL 3.6-5. 1 normal Not Available [address], [address], 02/24/2023 08:21:16 02/24/20 23 02/24/2023 COMPR EHENS HENRIQUE METAB OLIC PANEL globulin 2.5 g/dL_ (calc ) 1.9-3. 7 normal Not Available [address], [address], 02/24/2023 08:21:16 02/24/20 23 02/24/2023 COMPR EHENS HENRIQUE METAB OLIC PANEL albumin/glob ulin ratio 1.7 (calc ) 1.0-2. 5 normal Not Available [address], [address], 02/24/2023 08:21:16 02/24/20 23 02/24/2023 COMPR EHENS HENRIQUE METAB OLIC PANEL bilirubin, total 0.4 mg/dL 0.2-1. 2 normal Not Available [address], [address], 02/24/2023 08:21:16 02/24/20 23 02/24/2023 COMPR EHENS HENRIQUE METAB OLIC PANEL alkaline phosphatase 85 U/L 37-153 normal Not Available [address], [address], 02/24/2023 08:21:16 02/24/20 23 02/24/2023 COMPR EHENS HENRIQUE METAB OLIC PANEL AST 18 U/L 10-35 normal Not Available [address], [address], 02/24/2023 08:21:16 02/24/20 23 02/24/2023 COMPR EHENS HENRIQUE METAB OLIC PANEL ALT 20 U/L 6-29 normal Not Available [address], [address], 02/24/2023 08:21:16 02/24/20 23 02/24/2023 COMPR EHENS HENRIQUE METAB OLIC PANEL copy(ies) sent to: [facility] [address] [place] [address] Not Available [address], [address], 02/24/2023 08:21:16 02/24/20 23 02/24/2023 T4, FREE T4, free 1.2 NG/dL 0.8-1. 8 normal Not Available [address], [address], 02/24/2023 08:21:17 02/24/20 23 02/24/2023 T4, FREE copy(ies) sent to: [facility] [address] [place] [address] Not Available [address], [address], 02/24/2023 08:21:17 02/24/2002/24/2023 TSH TSH 2.20 mIU/L 0.40-4 .50 normal Not Available [address], [address], 02/24/2023 08:21:17 02/24/2002/24/2023 TSH copy(ies) sent to: [facility] [address] [place] [address] Not Available [address], [address], 02/24/2023 08:21:17 02/24/20 23 02/24/2023 T3, FREE T3, free 3.9 pg/mL 2.3-4. 2 normal Not Available [address], [address], 02/24/2023 08:21:18 02/24/2002/24/2023 T3, FREE copy(ies) sent to: [facility] [address] [place] [address] Not Available [address], [address], 02/24/2023 08:21:18 Result Notes None recorded. Problems Name Problem SNOMED Code Status Onset Date Resolution Date Notes Provider Name and Address Organization Details Recorded Time Autoimmune thyroiditis 67295991 Active 023 Mansi Grimes MD [address] [facility], [facility] [address], [place], [address] , [facility] [employer] [facility] 10:11:27 Problem Notes None recorded. Procedures Surgical History Date Name Laterality Status Provider Name and Address Organization Details Recorded Time 10/25/18 93 delivery completed Not Available [facility] 10/14/2022 22:42:15 05/29/19 84 delivery completed Not Available [facility] 10/14/2022 22:42:15 oophorectomy completed Not Available [facility] 10/14/2022 22:42:15 cholecystectomy completed Not Available [facility] 10/14/2022 22:42:15 ligation of bilateral fallopian tubes completed Not Available [facility] 10/14/2022 22:42:15 Imaging Results None recorded. Procedure Notes None recorded. Medical Equipment None Reported. Medications Name Sig Start Date Stop Date Status Note LastModified by Organization Details LastModified Time prednisone 10 mg tablet 03/12 completed Not Available Not Available Not Available atorvastatin 20 mg tablet take 1 tablet daily active Not Available Not Available No t Available nicotine 14 mg/24 hr daily transdermal patch 03/12 completed Not Available Not Available Not Available digoxin 250 mcg (0.25 mg) tablet 02/07 completed Not Available Not Available Not Available nicotine 21 mg/24 hr daily transdermal patch 03/12 completed Not Available Not Available Not Available methimazole 5 mg tablet TAKE ONE TABLET BY MOUTH EVERY MORNING active Not Available Not Available No t Available gentamicin 0.1 % topical cream 02/07 completed Not Available Not Available Not Available montelukast 10 mg tablet active Not Available Not Available Not Available metoprolol succinate ER 25 mg tablet,exten ded release 24 hr active Not Available Not Available Not Available albuterol sulfate HFA 90 mcg/actuatio n aerosol inhaler active Not Available Not Available Not Available methimazole 10 mg tablet 02/07 completed Not Available Not Available Not Available ipratropium bromide 42 mcg (0.06 %) nasal spray active Not Available Not Available Not Available amoxicillin 875 mg-potassium clavulanate 125 mg tablet 03/12 completed Not Available Not Available Not Available nicotine 7 mg/24 hr daily transdermal patch 03/12 completed Not Available Not Available Not Available bupropion HCl XL 300 mg 24 hr tablet, extended release active Not Available Not Available Not Available varenicline tartrate 1 mg tablet active Not Available Not Available No t Available Symbicort 80 mcg-4.5 mcg/actuatio n HFA aerosol inhaler active Not Available Not Available Not Available Eliquis 5 mg tablet active Not Available Not Available Not Available Vitals Date Recorded Body mass index (BMI) Body height Oxygen saturation Oxygen saturation in Arterial blood by Pulse oximetry Heart rate Body temperature Body weight Systolic blood pressure Diastolic blood pressure Provider Name and Address Organization Details Last Updated DateTime 2 27.6 kg/m2 160.02 cm 97 % 97 % 85 /min 97.7 [degF] 25438.4 1 g 150 mm[Hg] 95 mm[Hg] Not Available [facility] 22:42:28 Date Recorded Body mass index (BMI) Body height Oxygen saturation Oxygen saturation in Arterial blood by Pulse oximetry Heart rate Body temperature Body weight Systolic blood pressure Diastolic blood pressure Provider Name and Address Organization Details Last Updated DateTime 1 26.4 kg/m2 160.02 cm 97 % 97 % 81 /min 97.7 [degF] 78251.2 6 g 120 mm[Hg] 74 mm[Hg] Not Available [facility] 22:42:28 Date Recorded Body height Body mass index (BMI) Body weight Heart rate Body temperature Systolic blood pressure Diastolic blood pressure Provider Name and Address Organization Details Last Updated DateTime 3 160.02 cm 29.1 kg/m2 37318.1 5 g 77 /min 97.9 [degF] 139 mm[Hg] 79 mm[Hg] [place] [facility] 3 09:48:03 Date Recorded Body mass index (BMI) Body height Oxygen saturation Oxygen saturation in Arterial blood by Pulse oximetry Heart rate Body temperature Body weight Systolic blood pressure Diastolic blood pressure Provider Name and Address Organization Details Last Updated DateTime 1 27.6 kg/m2 160.02 cm 97 % 97 % 79 /min 98.1 [degF] 43705.4 1 g 134 mm[Hg] 78 mm[Hg] Not Available [facility] 3 22:42:28 Date Recorded Body mass index (BMI) Body height Oxygen saturation Oxygen saturation in Arterial blood by Pulse oximetry Heart rate Body temperature Body weight Systolic blood pressure Diastolic blood pressure Provider Name and Address Organization Details Last Updated DateTime 2 28.7 kg/m2 160.02 cm 95 % 95 % 84 /min 97.8 [degF] 29247.9 6 g 140 mm[Hg] 90 mm[Hg] Not Available [facility] 3 22:42:28 Social History Question Answer Notes LastModified by [employer] Details LastModified Time Tobacco Smoking Status Current Every Day Smoker Not Available [facility] 10/14/2022 22:41:57 What Is Your Level Of Caffeine Consumption? Moderate [id number] Information not available 10/14/2022 How Much Tobacco Do You Chew? None [id number] Information not available 10/14/2022 Which Illicit Or Recreational Drugs Have You Used? None [id number] Information not available 10/14/2022 How Much Tobacco Do You Smoke? 0.5 PPD [id number] Information not available 10/14/2022 Sex: Unknown Functional Status Question Answer Note LastModified by [employer]gen[employer] Details LastModified Time What is your level of alcohol consumption? None [id number] Information not available 10/14/2022 Do you or have you ever used smokeless tobacco? Never used smokeless tobacco [id number] Information not available 10/14/2022 What is your occupation? retired [id number] Information not available 10/14/2022 Do you or have you ever used e-cigarettes or vape? Never used electronic cigarettes [id number] Information not available 10/14/2022 Mental Status None recorded. Family History Nothing Reported. Medical History Condition Response LUNG DISEASE/DISORDER Y HIGH CHOLESTEROL / HYPERLIPIDEMIA Y HYPERTHYROIDISM Y ATRIAL FIBRILLATION Y AUTOIMMUNE DISEASE N Gynecological HistoryNo gynecological history recorded. Obstetrics History GPAL:G 0 P 0 0 0 0 Past Encounters Encounter ID Performer Location Encounter Start Date Encounter Closed Date Diagnosis/Indication Diagnosis SNOMED-CT Code Diagnosis ICD10 Code Diagnosis Note [id number] Mansi Grimes MD [facility] [place] [address] [place] [address] 02/07/2021 00:00:00 02/07/2021 11:58:40 [id number] Mansi Grimes MD [facility] [place] [address] [place] [address] 02/28/2021 00:00:00 02/28/2021 09:13:21 [id number] Mansi Grimes MD [facility] [place] [address] [place] [address] 06/13/2021 00:00:00 06/13/2021 11:09:42 [id number] Mansi Grimes MD [facility] [place] [address] [place] [address] 12/12/2021 00:00:00 12/12/2021 09:48:29 [id number] Mansi Grimes MD [facility] [place] [address] [place] [address] 06/16/2022 00:00:00 06/16/2022 13:56:50 [id number] Mansi Grimes MD [facility] [place] [address] [place] [address] 03/12/2023 09:30:22 03/12/2023 10:19:44 Autoimmune thyroiditis 10334711 E06.3 Patient diagnosed in summer 2020 and now on lowest dose methimazol e 5 mg every other day. TSI dropped from 196% down to 166% up from 144%- still positive- continue on methimazol e every other day for now. TSH and FT4 in ideal range- continue methimazol e 5 mg every other day. Recommende d a thyroid supplement similiar to actalin by Dr. Roly Sesay that contains, iodine, magnesium, manganese, carnitine and other elements to help maintain endogenous thyroid function and help to reduce swelling to take in meantime to help reduce time frame to burn out and to help with fatigue, hair thinning etc. She is aware to follow up with her PCP. Spent up to 20 minutes preparing to see the patient (eg, review of tests), obtaining and/or reviewing separately obtained history, performing a medically appropriat e examinatio n and evaluation , counseling and educating the patient, ordering medication s, tests, along with documentin g clinical informatio n in the electronic health record, independen tly interpreti ng results and communicat ing results to the patient. Patient can be followed by PCP - she/he is aware of my resignatio n and last day of May 28. If needed his/her PCP can refer patient to another endocrinol ogist in the area. All questions /concerns answered and refills necessary at visit today. Health Concerns Section Related Observation LastModified by Organization Detai ls LastModified Time None Recorded Concern Status LastModified by Organization Details LastModified Time None Recorded Advance Directives Directive None Recorded Payers Insurance Date Sequence Insurance Name Policy Number Policy Lane Covered Member ID Lane Member ID Guarantor Name 03/12/2023 1 [place] Marcella Stanton Ruddy [id number] Marcella Stanton Ruddy 03/09/2023 2 [place] (PPO) [id number] Temo J Ruddy [id number] Marcella Fox Notes Date Note Type Note Provider Name and Address Organization Details Recorded Time 03/12/2023 text/html 67 yo female com es in for follow up in management of autoimmune thyroiditis. last seen in Jun at that time we continued methimazole every other day. Her weight is overall stable but she has gained 8 pounds slowly over 2 years. She has had no recent ailments or sick contacts. She has no needed abx or steroid therapy. labs from 02/23/23:TSH of 2.20 uIU/mlFT4 of 1.2 ng/dLFT3 of 3.9 pg/mLglucose 108 mg/dLCr normalLFT normal Mansi Grimes MD [address] [facility], [facility] [address], [place], [address], [place] [facility] [employer] 03/12/2023 10:16:28 OBGyn Episode No OBEpisode recorded.
--- OUTSIDE RECORDS SUMMARY | 2025-02-13 09:29 | XMS_ITS | Referral Summary ---
Author Organization [facility] [address] [place] [address] Care Team Providers Care Spun Paste Machine Operator Name Role Phone Kennedy Perry MD Primary Care Provider + [phone] Allergies No known active allergies Medications montelukast [...] (500 mcg total) by mouth daily Active Symbicort 80-4.5 mcg/actuation inhaler 5 Active nicotine (NICODERM CQ) 21 mg 5 Active varenicline tartrate (CHANTIX) 1 mg tablet 5 Active Active Problems Problem Noted Date Diagnosed [...] Tobacco: Every Day Cigarettes Smokeless Tobacco: Never PHQ-2 Answer Date Recorded PHQ-2 Total Score (If total score is 3 or more points, staff should administer the PHQ-9) 0 04/24/2024 Comments Unknown Sex and Gender Information Value Date Recorded Sex Assigned at Not on file 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 Gender Identity Not on file Sexual Orientation Not on file Last Filed Vital Signs Vital Sign Reading Time Taken Comments Blood Pressure 122/80 10/30/2024 9:36 AM CDT Pulse 67 10/30/2024 9:36 AM CDT Temperature - - Respiratory Rate 14 10/30/2024 9:36 AM CDT Oxygen Saturation - - Inhaled Oxygen Concentration - - Weight 76.7 kg (169 lb) 10/30/2024 9:36 AM CDT Height 160 cm (5' 2.99) 10/30/2024 9:36 AM CDT Body Mass Index 29.94 10/30/2024 9:36 AM CDT Plan of Treatment Not on file Insurance MEDICARE [facility] Care Teams Spun Paste Machine Operator Relationship Specialty Start Date End Date Kennedy Perry MD PCP - General Internal Medicine 01/03/19
--- OUTSIDE RECORDS SUMMARY | 2025-02-13 09:29 | XMS_ITS | Encounter Summary ---
Author Organization [facility] Address [facility] [place] [address] Care Team Providers Care Middle School Band Teacher Name Role Phone Kennedy Perry MD Primary Care Provider [phone] Van Butt MD Unavailable Unavailable Jett Borja PA-C Unavailable [phone] Roya Fisher MD Unavailable [phone] Encounter Details Date Type Department Care Team (Late st Contact Info) Description 05/19/2021 Abstract [facility] [address] [place] [address] Van Butt MD Social History Tobacco Use [...] Result * THYROXINE, FREE (FT4) (04/29/2021) Pathologist [facility] FREE T4 1.2 04/29/2021 us Doc [facility] Abstract LABORATORY Final Result * TSH (OUTSIDE LAB) (04/29/2021) [facility] TSH 1.11 04/29/2021 us Doc [facility] Abstract LAB-OUTSIDE/ABSTRACTED Final Result * CMP (ABSTRACTED LAB) (04/29/2021) [facility] SODIUM S/P/B 141 POTASSIUM S/P/B 4.3 CHLORIDE S/P/B 106 CO2 20 BUN 11 CREATININE S/P/B 0.58 0.5 - 1.0 CALCIUM S/P/B 9.4 GLUCOSE 102 mg/dL TOTAL PROTEIN S/P/B 7.0 ALBUMIN S/P/B 4.2 3.5 - 5.0 AST 17 ALT 16 ALKALINE PHOSPHATASE S/P/B 70 BILIRUBIN TOTAL S/P/B 0.4 04/29/2021 us Doc [facility] Abstract LAB-OUTSIDE/ABSTRACTED Final Result * LIPID PANEL (04/29/2021) [facility] CHOLESTEROL 228 HDL 45 TRIGLYCERIDES 175 NON HDL CHOLESTEROL 182 CHOL/HDL RATIO 5.0 LDL (CALCULATED) 151 04/29/2021 us Doc [facility] LABORATORY Final Result documented in this encounter Visit Diagnoses Not on filedocumented in this encounter Care Teams Middle School Band Teacher Relationship Specialty Start Date End Date Kennedy Perry MD [address] [place] [phone] PCP - General INTERNAL MEDICINE 02/07/19 Van Butt MD [address] [place] [address] EP Denial Resolution Specialist CLINICAL CARDIAC ELECTROPHYSIOLOGY 07/13/20 Jett Borja PA-C [address] [place] [phone] Physician Sales Representative Education Courses Electrophysiology 07/13/20 Roya Fisher MD [address] [place] [phone] Consulting Physician Electrophysiology 06/15/24 documented as of this encounter
--- OUTSIDE RECORDS SUMMARY | 2025-02-13 09:29 | XMS_ITS | Clinical Summary ---
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 Gender Identity Not on file Sexual Orientation [...] 10/30/2024 9:36 AM CDT Plan of Treatment Health Maintenance Due Date Last Done Comments Breast Cancer Screening-Mammogram 1955 Colon Cancer Screening-Colonoscopy 1955 Hepatitis C Screening 1955 Osteoporosis Screening-Bone Density Scan 1955 Hepatitis B Screening 1973 Well Visit 65+ 2020 Covid-19 Vaccine (2023-2 5 season) 2024 06/01/2023, 05/14/2022, 07/15/2021, Additional history exists Pneumococcal vaccine 65+ (3 of 3 - PCV20 or PCV21) 07/11/2024 07/11/2019, 07/03/2017 Influenza Vaccine (Season Ended) 2025 06/01/2023, 05/14/2022, 05/15/2021, Additional history exists Depression Screening 04/24/2025 04/24/2024 Fall Risk Assessment 04/24/2025 04/24/2024 DTaP/Tdap/Td Vaccine (3 - Td or Tdap) 06/23/2033 06/23/2023, 07/04/2012 Zoster Vaccine Completed 02/12/2019, 12/10/2018 Insurance MEDICARE [facility] Care Teams Professor Of Violin Relationship Specialty Start Date End Date Kennedy Perry MD PCP - General Internal Medicine 01/03/19
--- OUTSIDE RECORDS SUMMARY | 2025-02-13 09:29 | XMS_ITS | Encounter Summary ---
Author Organization [facility] Address [facility] [place] [address] Care Team Providers Care Edge Glue Machine Tender Name Role Phone Kennedy Perry MD Primary Care Provider [phone] Van Butt MD Unavailable Unavailable Jett Borja PA-C Unavailable [phone] Roya Fisher MD Unavailable [phone] Encounter Details Date Type Department Care Team (Late st Contact Info) Description 03/14/2020 Hospital Follow-up Call [facility] [address] [place] [address] Scarlet Godwin, RN Social History [...] on filedocumented in this encounter Care Teams Edge Glue Machine Tender Relationship Specialty Start Date End Date Kennedy Perry MD [address] [place] [address] PCP - General INTERNAL MEDICINE 02/07/19 Van Butt MD [address] [place] [phone] EP Wood Stock Blank Handler CLINICAL CARDIAC ELECTROPHYSIOLOGY 07/13/20 Jett Borja PA-C [address] [place] [phone] Physician Capacitor Repairer Electrophysiology 07/13/20 Roya Fisher MD [address] [place] [address], [place] [address] Consulting Physician Electrophysiology 06/15/24 documented as of this encounter
--- OUTSIDE RECORDS SUMMARY | 2025-02-13 09:30 | XMS_ITS | Encounter Summary ---
Author Organization [facility] Address [address] [place] [id number] Care Team Providers Care Lapel Baster Name Role Phone Kennedy Perry MD Primary Care Provider [phone] Van Butt MD Unavailable Unavailable Jett Borja PA-C Unavailable [phone] Roya Fisher MD Unavailable [phone] Encounter Details Date Type Department Care Team (Late st Contact Info) Description 07/01/2021 Abstract [facility] [address] [place] [address] Amanuel Carreno MD [address] [place] [phone] Social History Tobacco Use Types Packs/Day Years [...] COVID-19? No / Unsure 06/25/2021 11:16 AM RETREAD SUPERVISOR documented as of this encounter Functional Status [...] on filedocumented in this encounter Care Teams Lapel Baster Relationship Specialty Start Date End Date Kennedy Perry MD [address] [place] [address] PCP - General INTERNAL MEDICINE 02/07/19 Van Butt MD [address] [place] [address] EP Stonework Supervisor CLINICAL CARDIAC ELECTROPHYSIOLOGY 07/13/20 Jett Borja PA-C [address] [place] [phone] Physician Computer Network And Systems Engineer Electrophysiology 07/13/20 Roya Fisher MD [address] [place] [address] Consulting Physician Electrophysiology 06/15/24 documented as of this encounter
== END 2025-02-13 09:22 | disposition home or self-care (01) ==
PROVIDERS: PCP Internal Medicine; Visit Provider Internal Medicine
DX: R92.8 Other abnormal and inconclusive findings on diagnostic imaging of breast (principal)
CPT/HCPCS: 76642; 77061; 77065; G0279